=== PATIENT | female | born 1955 | race Hispanic/Latino ===

== ENCOUNTER 2018-09-16 23:35 | Inpatient (IN) | payer OTHER ==
[~2018-09-16] VITALS: Ht 170.2 cm; Wt 111.1 kg
[~2018-09-16 23:35] MED LIST: ACET-2247 PO; ALLO300T2 PO; ASPI-1012 PO; CELE200 PO; ENAL10TA PO; FERR-82 PO; GLIM4TAB PO; INSLAN SQ; LORA1TAB3 PO; METF-446 PO; OXYC5 PO; PREG25 PO; TRIA1TAB3 PO
[2018-09-17] MEDS ORDERED: LIDOCAINE 1%-EPI 1:100,000 20 ML VIAL IJ ONE (00:12)
[2018-09-17 00:17] LABS: BASOPHILS % (AUTO) 0.5 % (0.0-5.0); EOSINOPHILS % (AUTO) 0.8 % (0.0-8.0); HEMATOCRIT 34.7 % (36-48); LYMPHOCYTES % (AUTO) 12.3 % (21.0-51.0); MEAN CORPUSCULAR HEMOGLOBIN 29.9 pg (27.0-33.0); MEAN CORPUSCULAR HGB CONC 33.2 g/dL (32.0-36.0); MONOCYTES % (AUTO) 6.7 % (3.0-13.0); NEUTROPHILS % (AUTO) 79.7 % (40.0-77.0); NUCLEATED RED BLOOD CELLS 0.1 % (0.0-0.19); PLATELET COUNT (AUTO) 382 K/uL (130-400); RED BLOOD CELL COUNT(AUTO) 3.86 MIL/uL (4.00-5.50); RED CELL DISTRIBUTION WIDTH 14.6 % (11.0-15.5); WHITE BLOOD COUNT (AUTO) 17.1 K/uL (4.8-10.8)
[2018-09-17] MEDS ORDERED: CLINDAMYCIN 600 MG/D5% WATER 50 ML IV ONE (00:52)
[2018-09-17 01:06] LABS: CREATININE 1.2 mg/dL (0.5-1.5); POTASSIUM 4.4 mmol/L (3.5-5.1)
[2018-09-17] MEDS ORDERED: HYDROCODONE/ACETAMINOPHEN 5/325 MG TAB ONE (01:33)
[2018-09-17] MEDS ORDERED: VANCOMYCIN 1GM+NS 250ML 250 ML IV SCH (02:00)
[2018-09-17] MEDS ORDERED: ONDANSETRON HCL 4 MG/2 ML VIAL IV PRN (02:00)
[2018-09-17] MEDS: ACETAMINOPHEN 325 MG TAB PO SCH ×3 (02:15→16:28)
[2018-09-17] MEDS ORDERED: LORAZEPAM 1 MG TABLET PO PRN (02:15)
[2018-09-17] MEDS ORDERED: VANCOMYCIN PROTOCOL PER PHARMACY IV SCH (02:45)
[2018-09-17] MEDS ORDERED: VANCOMYCIN 1GM+NS 250ML 250 ML IV ONE (04:59)
[2018-09-17] MEDS ORDERED: SODIUM CHLORIDE 0.9% 1000ML 1,000 ML IV ONE (04:59)
[2018-09-17] MEDS ORDERED: MORPHINE SULFATE 4 MG/1ML SYG ONE (07:41)
[2018-09-17] MEDS: GLIMEPIRIDE 2 MG TABLET PO SCH ×2 (08:00→16:28)
[2018-09-17 08:20] VITALS: BP 144/60
[2018-09-17] MEDS ORDERED: DEXTROSE 50%-WATER 50 ML DISP.SYRIN IV PRN (08:45)
[2018-09-17] MEDS ORDERED: GLUCAGON 1MG KIT 1 MG ML IM PRN (08:45)
[2018-09-17] MEDS: FAMOTIDINE/PF 20 MG/2 ML VIAL IV SCH ×2 (08:54→21:24)
[2018-09-17] MEDS: ZOSYN 3.375GM+NS 50ML 50 ML IV SCH ×3 (08:55→21:24)
[2018-09-17] MEDS: ALLOPURINOL 300 MG TABLET PO SCH (08:56)
[2018-09-17] MEDS: METFORMIN HCL 500 MG TABLET PO SCH ×2 (08:56→17:21)
[2018-09-17] MEDS: ENALAPRIL MALEATE 10 MG TABLET PO SCH (08:56)
[2018-09-17] MEDS: SODIUM CHLORIDE 0.9% 1000ML 1,000 ML IV SCH ×3 (08:57→21:39)
[2018-09-17] MEDS: INSULIN GLARGINE 100 UNITS/ML 10 ML VIAL SQ SCH ×2 (09:09→21:32)
[2018-09-17] MEDS ORDERED: ASPI-1197 PO (10:12)
[2018-09-17] MEDS ORDERED: ESCI20TA36 PO (10:18)
[2018-09-17 11:05] VITALS: BP 115/51
[2018-09-17] MEDS: INSULIN HUMULIN R 100 UNIT/ML 3ML SQ SCH ×3 (12:14→21:00)
[2018-09-17] MEDS: MORPHINE SULFATE 2 MG/ML 1ML SYG IV PRN (12:16)
[2018-09-17] MEDS: VANCOMYCIN 500MG+NS 100ML 100 ML IV SCH ×2 (15:20→21:52)
[2018-09-17 15:27] VITALS: BP 107/52
[2018-09-17 16:08] LABS: HEMATOCRIT 30.6 % (36-48); MEAN CORPUSCULAR HEMOGLOBIN 29.2 pg (27.0-33.0); MEAN CORPUSCULAR HGB CONC 32.4 g/dL (32.0-36.0); MEAN CORPUSCULAR VOLUME 89.9 fL (79-99); PLATELET COUNT (AUTO) 284 K/uL (130-400); RED CELL DISTRIBUTION WIDTH 14.4 % (11.0-15.5); WHITE BLOOD COUNT (AUTO) 9.9 K/uL (4.8-10.8)
[2018-09-17] MEDS ORDERED: PREGABALIN 25 MG CAP PO SCH (17:00)
[2018-09-17 19:55] VITALS: BP 113/60
[2018-09-17] MEDS: OXYCODONE HCL 5 MG TAB PO PRN (21:39)
[2018-09-17 23:10] VITALS: BP 113/64
[2018-09-18 03:10] VITALS: BP 126/72
[2018-09-18 05:31] LABS: BASOPHILS % (AUTO) 0.6 % (0.0-5.0); EOSINOPHILS % (AUTO) 4.3 % (0.0-8.0); HEMATOCRIT 32.8 % (36-48); LYMPHOCYTES % (AUTO) 32.9 % (21.0-51.0); MEAN CORPUSCULAR HEMOGLOBIN 30.2 pg (27.0-33.0); MEAN CORPUSCULAR VOLUME 91.6 fL (79-99); MONOCYTES % (AUTO) 7.7 % (3.0-13.0); NEUTROPHILS % (AUTO) 54.5 % (40.0-77.0); PLATELET COUNT (AUTO) 384 K/uL (130-400); RED BLOOD CELL COUNT(AUTO) 3.58 MIL/uL (4.00-5.50); RED CELL DISTRIBUTION WIDTH 14.6 % (11.0-15.5); WHITE BLOOD COUNT (AUTO) 9.9 K/uL (4.8-10.8)
[2018-09-18] MEDS: ZOSYN 3.375GM+NS 50ML 50 ML IV SCH (05:50)
[2018-09-18] MEDS: INSULIN HUMULIN R 100 UNIT/ML 3ML SQ SCH ×4 (05:51→21:00)
[2018-09-18] MEDS: VANCOMYCIN 500MG+NS 100ML 100 ML IV SCH (05:51)
[2018-09-18 05:55] LABS: CREATININE 1.2 mg/dL (0.5-1.5)
[2018-09-18 07:30] VITALS: BP 126/59
[2018-09-18] MEDS: INSULIN GLARGINE 100 UNITS/ML 10 ML VIAL SQ SCH ×2 (08:02→21:50)
[2018-09-18] MEDS: METFORMIN HCL 500 MG TABLET PO SCH ×2 (08:07→17:24)
[2018-09-18] MEDS: ENALAPRIL MALEATE 10 MG TABLET PO SCH (08:07)
[2018-09-18] MEDS: ALLOPURINOL 300 MG TABLET PO SCH (08:07)
[2018-09-18] MEDS: FAMOTIDINE/PF 20 MG/2 ML VIAL IV SCH ×2 (08:07→20:15)
[2018-09-18] MEDS: ACETAMINOPHEN 325 MG TAB PO PRN (08:16)
[2018-09-18] MEDS: MORPHINE SULFATE 2 MG/ML 1ML SYG IV PRN (08:17)
[2018-09-18 11:00] VITALS: BP 118/54
[2018-09-18] MEDS: CLINDAMYCIN HCL 150 MG CAP PO SCH ×2 (12:43→17:24)
[2018-09-18 16:00] VITALS: BP 126/88
[2018-09-18] MEDS: OXYCODONE HCL 5 MG TAB PO PRN (20:15)
[2018-09-18 20:24] VITALS: BP 144/73
[2018-09-18 23:34] VITALS: BP 122/59
[2018-09-19] MEDS: CLINDAMYCIN HCL 150 MG CAP PO SCH ×3 (03:27→17:28)
[2018-09-19] MEDS: ACETAMINOPHEN 325 MG TAB PO PRN ×2 (03:34→15:55)
[2018-09-19 03:42] VITALS: BP 141/71
[2018-09-19 04:45] LABS: BASOPHILS % (AUTO) 0.6 % (0.0-5.0); EOSINOPHILS % (AUTO) 5.1 % (0.0-8.0); HEMATOCRIT 31.9 % (36-48); LYMPHOCYTES % (AUTO) 28.9 % (21.0-51.0); MEAN CORPUSCULAR HEMOGLOBIN 29.3 pg (27.0-33.0); MEAN CORPUSCULAR HGB CONC 32.5 g/dL (32.0-36.0); MEAN CORPUSCULAR VOLUME 90.4 fL (79-99); MONOCYTES % (AUTO) 8.3 % (3.0-13.0); NEUTROPHILS % (AUTO) 57.1 % (40.0-77.0); NUCLEATED RED BLOOD CELLS 0.1 % (0.0-0.19); PLATELET COUNT (AUTO) 346 K/uL (130-400); RED BLOOD CELL COUNT(AUTO) 3.53 MIL/uL (4.00-5.50); RED CELL DISTRIBUTION WIDTH 14.3 % (11.0-15.5); WHITE BLOOD COUNT (AUTO) 7.8 K/uL (4.8-10.8)
[2018-09-19 04:59] LABS: POTASSIUM 4.1 mmol/L (3.5-5.1)
[2018-09-19] MEDS: INSULIN HUMULIN R 100 UNIT/ML 3ML SQ SCH ×4 (06:36→20:30)
[2018-09-19 08:00] VITALS: BP 145/72
[2018-09-19] MEDS: ENALAPRIL MALEATE 10 MG TABLET PO SCH (08:20)
[2018-09-19] MEDS: FAMOTIDINE/PF 20 MG/2 ML VIAL IV SCH (08:21)
[2018-09-19] MEDS: METFORMIN HCL 500 MG TABLET PO SCH ×2 (08:21→17:28)
[2018-09-19] MEDS: ALLOPURINOL 300 MG TABLET PO SCH (08:21)
[2018-09-19] MEDS: INSULIN GLARGINE 100 UNITS/ML 10 ML VIAL SQ SCH ×2 (08:26→21:00)
[2018-09-19] MEDS: OXYCODONE HCL 5 MG TAB PO PRN ×2 (09:03→17:33)
[2018-09-19 11:50] VITALS: BP 130/67
[2018-09-19 16:00] VITALS: BP 138/72
[2018-09-19] MEDS ORDERED: METRONIDAZOLE 500 MG TABLET PO STA (18:02)
[2018-09-19] MEDS ORDERED: LEVOFLOXACIN 500 MG TABLET PO STA (18:02)
[2018-09-19 20:03] VITALS: BP 159/71
[2018-09-19] MEDS: FAMOTIDINE 20MG TAB 20 MG TAB PO SCH (20:36)
[2018-09-19] MEDS: METRONIDAZOLE 500 MG TABLET PO SCH (20:37)
[2018-09-19 23:07] VITALS: BP 133/53
[2018-09-20] MEDS: OXYCODONE HCL 5 MG TAB PO PRN ×2 (00:17→12:15)
[2018-09-20] MEDS: CLINDAMYCIN HCL 150 MG CAP PO SCH ×3 (01:54→09:59)
[2018-09-20 03:16] VITALS: BP 135/65
[2018-09-20 04:53] LABS: HEMATOCRIT 30.1 % (36-48); MEAN CORPUSCULAR HEMOGLOBIN 30.4 pg (27.0-33.0); MEAN CORPUSCULAR HGB CONC 33.8 g/dL (32.0-36.0); MEAN CORPUSCULAR VOLUME 90.1 fL (79-99); NUCLEATED RED BLOOD CELLS 0.1 % (0.0-0.19); PLATELET COUNT (AUTO) 353 K/uL (130-400); RED BLOOD CELL COUNT(AUTO) 3.34 MIL/uL (4.00-5.50); RED CELL DISTRIBUTION WIDTH 14.2 % (11.0-15.5); WHITE BLOOD COUNT (AUTO) 7.1 K/uL (4.8-10.8)
[2018-09-20 05:03] LABS: POTASSIUM 3.9 mmol/L (3.5-5.1)
[2018-09-20] MEDS: METRONIDAZOLE 500 MG TABLET PO SCH ×2 (05:21→14:23)
[2018-09-20] MEDS: INSULIN HUMULIN R 100 UNIT/ML 3ML SQ SCH ×2 (05:55→11:30)
[2018-09-20] MEDS ORDERED: LEVO500T2 PO (07:32)
[2018-09-20] MEDS ORDERED: FAMO20TA8 PO (07:32)
[2018-09-20] MEDS ORDERED: METR500T PO (07:32)
[2018-09-20 08:00] VITALS: BP 131/56
[2018-09-20] MEDS ORDERED: LEVOFLOXACIN 500 MG TABLET PO SCH (09:00)
[2018-09-20] MEDS: ENALAPRIL MALEATE 10 MG TABLET PO SCH (09:58)
[2018-09-20] MEDS: FAMOTIDINE 20MG TAB 20 MG TAB PO SCH (09:59)
[2018-09-20] MEDS: ALLOPURINOL 300 MG TABLET PO SCH (09:59)
[2018-09-20] MEDS: METFORMIN HCL 500 MG TABLET PO SCH (09:59)
[2018-09-20] MEDS: INSULIN GLARGINE 100 UNITS/ML 10 ML VIAL SQ SCH (10:05)
[2018-09-20 11:00] VITALS: BP 140/63
== END 2018-09-20 15:14 | disposition home or self-care (01) | DRG 746 ==
LOC: EDH 23:35 → EDHIP 09-17 01:30 → UNDOADMOB 09-17 01:30 → EDHIP 09-17 01:31 → OBSVTOIN 09-17 01:31 → 4BH 09-17 08:16
PROVIDERS: ADMIT Hospitalist; ATTEND Hospitalist
PROC: 0U9MXZX Drainage of Vulva, External Approach, Diagnostic (ICD-10-PCS; principal; 2018-09-17)
DX: N76.4 Abscess of vulva (principal); L02.214 Cutaneous abscess of groin; E11.65 Type 2 diabetes mellitus with hyperglycemia; I10 Essential (primary) hypertension; D72.829 Elevated white blood cell count, unspecified; E66.9 Obesity, unspecified; F32.9 Major depressive disorder, single episode, unspecified; F41.9 Anxiety disorder, unspecified; E78.5 Hyperlipidemia, unspecified; Z96.641 Presence of right artificial hip joint; Z79.4 Long term (current) use of insulin; Z83.3 Family history of diabetes mellitus; Z82.49 Family history of ischemic heart disease and other diseases of the circulatory system; Z68.38 Body mass index [BMI] 38.0-38.9, adult
CPT/HCPCS: 36415; 80048; 80202; 82948; 83605; 85025; 85027; 87040; 87070; 87076; J1815; J2270; J2405; J2543; J3370; J3490; J7030; Q2035

== ENCOUNTER 2019-01-10 06:33 | Inpatient (IN) | payer OTHER | END 2019-01-12 19:39 | disposition home or self-care (01) | LOC: DAHIP 06:33 → 4AH 12:59 | PROC: 0SRB01Z Replacement of Left Hip Joint with Metal Synthetic Substitute, Open Approach (ICD-10-PCS; principal; 2019-01-10 08:35) | DX: M16.0 Bilateral primary osteoarthritis of hip (principal) ==

== ENCOUNTER 2020-03-19 16:36 | Emergency (ER) | payer MEDICARE, OTHER ==
[~2020-03-19 16:36] MED LIST changes: -ACET-2247 PO; +ALLI PO; -CELE200 PO; -ENAL10TA PO; +ENAL10TA18 PO; -FERR-82 PO; -GLIM4TAB PO; +HYDR-4457 PO; +LORA0.5T83 PO; -LORA1TAB3 PO; -OXYC5 PO; -PREG25 PO; +TEMA15CA5 PO; -TRIA1TAB3 PO; +VITA400C73 PO
[2020-03-19] MEDS ORDERED: ACETAMINOPHEN EXTRA STRENGTH 500 MG TABLET ONE (17:12)
== END 2020-03-19 18:23 | disposition home or self-care (01) ==
LOC: EDH 16:36
DX: S31.41XA Laceration without foreign body of vagina and vulva, initial encounter (principal); S80.212A Abrasion, left knee, initial encounter; S80.211A Abrasion, right knee, initial encounter; E11.9 Type 2 diabetes mellitus without complications; I10 Essential (primary) hypertension; M10.9 Gout, unspecified; Z88.1 Allergy status to other antibiotic agents; W18.39XA Other fall on same level, initial encounter; Y93.01 Activity, walking, marching and hiking; Y92.89 Other specified places as the place of occurrence of the external cause; Y99.8 Other external cause status
CPT/HCPCS: 70450; 72125; 73562

== ENCOUNTER 2020-05-20 19:56 | Inpatient (IN) | payer MEDICARE ==
[~2020-05-20] VITALS: Ht 165.1 cm; Wt 102.5 kg
[~2020-05-20 19:56] MED LIST changes: +ENAL10TA PO; -ENAL10TA18 PO
[2020-05-20 21:23] LABS: BASOPHILS % (AUTO) 0.2 % (0.0-5.0); EOSINOPHILS % (AUTO) 0.2 % (0.0-8.0); HEMATOCRIT 36.1 % (36-48); LYMPHOCYTES % (AUTO) 23.8 % (21.0-51.0); MEAN CORPUSCULAR HGB CONC 32.1 g/dL (32.0-36.0); MEAN CORPUSCULAR VOLUME 87.2 fL (79-99); MONOCYTES % (AUTO) 8.4 % (3.0-13.0); NEUTROPHILS % (AUTO) 67.1 % (40.0-77.0); PLATELET COUNT (AUTO) 271 K/uL (130-400); RED BLOOD CELL COUNT(AUTO) 4.14 MIL/uL (4.00-5.50); RED CELL DISTRIBUTION WIDTH 14.5 % (11.0-15.5); WHITE BLOOD COUNT (AUTO) 6.5 K/uL (4.8-10.8)
[2020-05-20 21:42] LABS: INR 0.88 (0.85-1.15); PARTIAL THROMBOPLASTIN TIME 28.7 SEC (26.3-35.5); PROTHROMBIN TIME 9.6 SEC (9.6-11.6)
[2020-05-20 21:47] LABS: B-TYPE NATRIURETIC PEPTIDE 9 pg/mL (0-100)
[2020-05-20 21:54] LABS: ALANINE AMINOTRANSFERASE 30 U/L (12-78); ALBUMIN 3.2 g/dL (3.5-5.0); ASPARTATE AMINOTRANSFERASE 43 U/L (10-37); BILIRUBIN,TOTAL 0.2 mg/dL (0.2-1.0); CARBON DIOXIDE 24 mmol/L (21-32); CHLORIDE 94 mmol/L (101-111); CREATINE KINASE, TOTAL 118 U/L (21-232); GLOMERULAR FILTR. RATE CALC 27 mL/min (>60); MYOGLOBIN 152 ng/mL (10-92); SODIUM SERUM 128 mmol/L (136-145); TOTAL PROTEIN, SERUM 7.2 g/dL (6.0-8.3); TROPONIN I < 0.04 ng/mL (0.00-0.06); UREA NITROGEN, BLOOD 35 mg/dL (7-18)
[2020-05-20 22:00] LABS: GLUCOSE,RANDOM 463 mg/dL (70-105)
[2020-05-20 22:13] LABS: ABG BASE EXCESS -2.4 mmol/L (-2.0-3.0); ABG HCO3 22.5 mmol/L (21.0-28.0); ABG OXYGEN SATURATION 92.1 % (95.0-99.0); ABG PCO2 40 mmHg (32-45)
[2020-05-20] MEDS ORDERED: AZITHROMYCIN 500MG+NS 250ML 250 ML IV ONE (23:56)
[2020-05-20] MEDS ORDERED: CEFTRIAXONE SODIUM 1 GM ONE (23:56)
[2020-05-20] MEDS ORDERED: DEXAMETHASONE SOD PHOSPHATE 4 MG/ML 1ML VIAL ONE (23:56)
[2020-05-20] MEDS ORDERED: INSULIN HUMULIN R 100 UNIT/ML 3ML ONE (23:57)
[2020-05-21 00:30] LABS: APPEARANCE,URINE Clear (CLEAR); BILIRUBIN,URINE Negative (NEGATIVE); COLOR,URINE Yellow (YELLOW); GLUCOSE, URINE (UA) >=1000 mg/dL (NEGATIVE); KETONES,URINE Negative (NEGATIVE); LEUKOCYTE ESTERASE ,URINE Negative (NEGATIVE); NITRATE,URINE Negative (NEGATIVE); OCCULT BLOOD,URINE Small (NEGATIVE); PROTEIN,URINE POS 2+ mg/dL (NEGATIVE); UROBILINOGEN,URINE 0.2 mg/dL (0.2-1.0)
[2020-05-21 00:41] LABS: BACTERIA,URINE None Seen /HPF (None Seen); RBC,URINE 0-1 /HPF (0-1); SQUAMOUS EPITHELIAL CELL,UR Rare /HPF (0-2); WBC,URINE None Seen /HPF (0-1); YEAST,URINE BUDDING None Seen /HPF (None Seen)
[2020-05-21] MEDS: CALCIUM GLUCONATE 1 GM/10 ML VIAL IV SCH (01:15)
[2020-05-21] MEDS ORDERED: GLUCAGON 1MG KIT 1 MG ML IM PRN (01:15)
[2020-05-21] MEDS: ALBUTEROL INHALER 90MCG/INH IH SCH ×7 (01:15→22:00)
[2020-05-21] MEDS ORDERED: DEXTROSE 50%-WATER 50 ML DISP.SYRIN IV PRN (01:15)
[2020-05-21] MEDS: LEVOFLOXACIN 500 MG/D5W 100 ML 100 ML IV SCH (01:30)
[2020-05-21] MEDS: SODIUM CHLORIDE 0.9% 1000ML 1,000 ML IV SCH ×3 (01:32→21:32)
[2020-05-21] MEDS ORDERED: LEVOFLOXACIN 500 MG/D5W 100 ML 100 ML ONE (01:38)
[2020-05-21] MEDS ORDERED: ALBUTEROL INHALER 90MCG/INH IH ONE (01:38)
[2020-05-21] MEDS: METHYLPREDNISOLONE SOD SUCC 125MG/2ML VIAL IVP SCH (01:45)
[2020-05-21] MEDS ORDERED: ONDANSETRON HCL 4 MG/2 ML VIAL IV PRN (01:45)
[2020-05-21] MEDS ORDERED: NITROGLYCERIN 0.4 MG SL TAB SL PRN (01:45)
[2020-05-21] MEDS ORDERED: SODIUM CHLORIDE 0.9% 1000ML 1,000 ML IV PRN (01:45)
[2020-05-21] MEDS ORDERED: CALCIUM GLUCONATE 1 GM/10 ML VIAL IV ONE (01:47)
[2020-05-21 02:16] LABS: CREATINE KINASE, TOTAL 114 U/L (21-232); LACTATE DEHYDROGENASE 216 U/L (81-234); MYOGLOBIN 138 ng/mL (10-92); TRIGLYCERIDES 175 mg/dL (30-200); TROPONIN I < 0.04 ng/mL (0.00-0.06)
[2020-05-21] MEDS ORDERED: METHYLPREDNISOLONE SOD SUCC 40MG/ML 1ML ONE ×3 (02:41→14:49)
[2020-05-21 07:05] LABS: HEMATOCRIT 38.1 % (36-48); MEAN CORPUSCULAR HEMOGLOBIN 27.7 pg (27.0-33.0); MEAN CORPUSCULAR HGB CONC 31.8 g/dL (32.0-36.0); MEAN CORPUSCULAR VOLUME 87.2 fL (79-99); PLATELET COUNT (AUTO) 305 K/uL (130-400); RED BLOOD CELL COUNT(AUTO) 4.37 MIL/uL (4.00-5.50); RED CELL DISTRIBUTION WIDTH 14.2 % (11.0-15.5); WHITE BLOOD COUNT (AUTO) 10.3 K/uL (4.8-10.8)
[2020-05-21 08:36] LABS: ALBUMIN 3.1 g/dL (3.5-5.0); BILIRUBIN,TOTAL 0.2 mg/dL (0.2-1.0); CREATININE 1.6 mg/dL (0.5-1.5); MAGNESIUM 1.6 mg/dL (1.80-2.40); POTASSIUM 4.9 mmol/L (3.5-5.1); TOTAL PROTEIN, SERUM 7.5 g/dL (6.0-8.3)
[2020-05-21] MEDS ORDERED: PANTOPRAZOLE SODIUM 40 MG TABLET.DR ONE (08:40)
[2020-05-21] MEDS ORDERED: HEPARIN SODIUM 5000UNIT/ML 1ML VIAL ONE ×2 (08:40→14:50)
[2020-05-21] MEDS ORDERED: INSULIN HUMULIN R 100 UNIT/ML 3ML ONE ×2 (08:44→14:50)
[2020-05-21] MEDS ORDERED: TETRACAINE HCL 0.5% 4 ML OPHTH SOLN ONE (08:44)
[2020-05-21 08:47] VITALS: BP 151/70
[2020-05-21] MEDS: PANTOPRAZOLE SODIUM 40 MG TABLET.DR PO SCH (08:51)
[2020-05-21] MEDS: METHYLPREDNISOLONE SOD SUCC 40MG/ML 1ML IVP SCH ×2 (08:51→18:00)
[2020-05-21] MEDS: INSULIN HUMULIN R 100 UNIT/ML 3ML SQ SCH ×4 (08:58→21:00)
[2020-05-21] MEDS: HEPARIN SODIUM 5000UNIT/ML 1ML VIAL SQ SCH ×3 (08:59→21:00)
[2020-05-21 09:01] LABS: LYMPHOCYTES % (MANUAL) 2 % (22-44); MONOCYTES % (MANUAL) 5 % (2-9); PLATELET MORPHOLOGY COMMENT ADEQUATE; SEGMENTED NEUTROPHILS % 93 % (40-70)
--- NOTE | 2020-05-21 17:23 | NUR ---
SPOKE TO SON ON PHONE FOR IA. PATIENT MAURISIO WITH SON ANN, IS INDEPENDENT AND ACTIVE, DRIVES, HAD WKR AND SHOWER CHAIR AT HOME FROM PAST [facility] OCCASIONALLY USES A CANE- SON STATES HAS NOT YET BEEN TESTED, IS HAVING A LAB COME TO HIS HOUSE ON TUESDAY FOR TESTING. SON STATES PT TOLD HIM SHE WAS POSITIVE, ADVISED HIM NO RESULT BACK YET. DC PLAN IS HOME , CM TO FOLLOW
[2020-05-21] MEDS ORDERED: DIPHENHYDRAMINE HCL 25 MG CAPSULE ONE (21:54)
[2020-05-22] VITALS (7 sets, daily range): BP systolic 110–185; BP diastolic 64–87
[2020-05-22] MEDS ORDERED: METHYLPREDNISOLONE SOD SUCC 40MG/ML 1ML ONE (00:36)
[2020-05-22] MEDS ORDERED: HEPARIN SODIUM 5000UNIT/ML 1ML VIAL ONE (00:36)
[2020-05-22] MEDS: CALCIUM GLUCONATE 1 GM/10 ML VIAL IV SCH (01:15)
[2020-05-22] MEDS ORDERED: LEVOFLOXACIN 500 MG/D5W 100 ML 100 ML ONE (01:28)
[2020-05-22] MEDS: LEVOFLOXACIN 500 MG/D5W 100 ML 100 ML IV SCH (01:30)
[2020-05-22] MEDS: METHYLPREDNISOLONE SOD SUCC 125MG/2ML VIAL IVP SCH (01:45)
[2020-05-22] MEDS: ALBUTEROL INHALER 90MCG/INH IH SCH ×6 (02:00→21:56)
[2020-05-22] MEDS: METHYLPREDNISOLONE SOD SUCC 40MG/ML 1ML IVP SCH ×3 (02:00→17:47)
--- NOTE | 2020-05-22 02:35 | NUR ---
ADMISSION 0203 RECEIVED ER REPORT FROM ANDREEA PALMER RN 0235 PT ADMIT RM 411 ARRIVED ON O2 AT 3LPM PT REMOVED O2 OOB TO TOILET SPO2 87% SOB WITH EXERTION PT STATES ITS HER ASTHMA AND WHEEZES LUNG SOUNDS CLEAR BILAT CONT O2 SPO2 3LPM AT 96% INFORMED HER TO KEEP O2NC ON, AT REST PT CALM NO RESPIRATORY DISTRESS NO VALUABLE/ HOME MEDICATION AT BEDSIDE, ADMISSION DATABASE COMPLETE. WILL CONTINUE TO MONITOR PT
[2020-05-22 06:02] LABS: HEMATOCRIT 34.9 % (36-48); MEAN CORPUSCULAR HEMOGLOBIN 28.3 pg (27.0-33.0); MEAN CORPUSCULAR HGB CONC 32.7 g/dL (32.0-36.0); MEAN CORPUSCULAR VOLUME 86.6 fL (79-99); PLATELET COUNT (AUTO) 312 K/uL (130-400); RED BLOOD CELL COUNT(AUTO) 4.03 MIL/uL (4.00-5.50); RED CELL DISTRIBUTION WIDTH 14.2 % (11.0-15.5); WHITE BLOOD COUNT (AUTO) 9.3 K/uL (4.8-10.8)
[2020-05-22 06:33] LABS: CREATININE 1.9 mg/dL (0.5-1.5); POTASSIUM 4.7 mmol/L (3.5-5.1)
[2020-05-22] MEDS: INSULIN HUMULIN R 100 UNIT/ML 3ML SQ SCH ×6 (06:34→21:13)
[2020-05-22 08:53] LABS: BAND NEUTROPHILS % (MANUAL) 5 % (0-2); LYMPHOCYTES % (MANUAL) 10 % (22-44); MAN.DIFF COMMENT-IMPRESSION MANUAL DIFFERENTIAL; MONOCYTES % (MANUAL) 2 % (2-9); PLATELET MORPHOLOGY COMMENT ADEQUATE; SEGMENTED NEUTROPHILS % 83 % (40-70)
[2020-05-22] MEDS: PANTOPRAZOLE SODIUM 40 MG TABLET.DR PO SCH (09:28)
[2020-05-22] MEDS: HEPARIN SODIUM 5000UNIT/ML 1ML VIAL SQ SCH ×3 (09:38→21:10)
[2020-05-22] MEDS: SODIUM CHLORIDE 0.9% 1000ML 1,000 ML IV SCH ×3 (09:55→21:08)
[2020-05-22] MEDS ORDERED: INSULIN GLARGINE 100 UNITS/ML 10 ML VIAL SQ SCH ×2 (12:00→21:00)
[2020-05-22] MEDS ORDERED: INSULIN GLARGINE 100 UNITS/ML 10 ML VIAL SQ ONE (14:00)
[2020-05-22] MEDS ORDERED: INSULIN HUMULIN R 100 UNIT/ML 3ML SQ SCH (17:00)
[2020-05-22] MEDS ORDERED: ENALAPRIL MALEATE 10 MG TABLET PO SCH (22:30)
--- NOTE | 2020-05-22 23:56 | NUR ---
Assessment Pt is in the bed sleeping. Vitals are stable now. BP is trending down. Pt is being closely monitored. BS is being monitored as well.
[2020-05-23] VITALS (9 sets, daily range): BP systolic 101–185; BP diastolic 53–83
[2020-05-23] MEDS: LEVOFLOXACIN 500 MG/D5W 100 ML 100 ML IV SCH (01:35)
[2020-05-23] MEDS: METHYLPREDNISOLONE SOD SUCC 40MG/ML 1ML IVP SCH ×3 (01:36→17:56)
[2020-05-23] MEDS: ALBUTEROL INHALER 90MCG/INH IH SCH ×3 (01:37→20:36)
[2020-05-23] MEDS: METHYLPREDNISOLONE SOD SUCC 125MG/2ML VIAL IVP SCH (01:38)
[2020-05-23] MEDS: INSULIN HUMULIN R 100 UNIT/ML 3ML SQ SCH ×7 (05:53→20:33)
[2020-05-23 06:09] LABS: HEMATOCRIT 36.4 % (36-48); LYMPHOCYTES % (AUTO) 6.1 % (21.0-51.0); MEAN CORPUSCULAR VOLUME 84.8 fL (79-99); NEUTROPHILS % (AUTO) 89.4 % (40.0-77.0); PLATELET COUNT (AUTO) 340 K/uL (130-400); RED BLOOD CELL COUNT(AUTO) 4.29 MIL/uL (4.00-5.50); RED CELL DISTRIBUTION WIDTH 14.2 % (11.0-15.5); WHITE BLOOD COUNT (AUTO) 11.8 K/uL (4.8-10.8)
[2020-05-23 06:28] LABS: ALBUMIN 3.1 g/dL (3.5-5.0); BILIRUBIN,TOTAL 0.4 mg/dL (0.2-1.0); CREATININE 1.3 mg/dL (0.5-1.5); CRP QUANTITATIVE 61.1 mg/L (0.00-9.0); POTASSIUM 4.1 mmol/L (3.5-5.1); TOTAL PROTEIN, SERUM 7.4 g/dL (6.0-8.3)
[2020-05-23] MEDS: PANTOPRAZOLE SODIUM 40 MG TABLET.DR PO SCH (08:43)
[2020-05-23] MEDS: ENALAPRIL MALEATE 10 MG TABLET PO SCH (08:45)
[2020-05-23] MEDS: HEPARIN SODIUM 5000UNIT/ML 1ML VIAL SQ SCH ×3 (08:47→20:35)
[2020-05-23] MEDS ORDERED: INSULIN GLARGINE 100 UNITS/ML 10 ML VIAL SQ SCH (09:00)
--- NOTE | 2020-05-23 18:30 | NUR ---
Pt is in chair on side of bed sitting up watching tv, pt showed no signs and symptoms of distress, pt stated no pain, 3L NC
[2020-05-23] MEDS: INSULIN GLARGINE 100 UNITS/ML 10 ML VIAL SQ SCH (20:34)
[2020-05-23] MEDS: DIPHENHYDRAMINE HCL 25 MG CAPSULE PO PRN (20:35)
[2020-05-24] VITALS (8 sets, daily range): BP systolic 136–159; BP diastolic 62–80
[2020-05-24] MEDS: METHYLPREDNISOLONE SOD SUCC 125MG/2ML VIAL IVP SCH (01:32)
[2020-05-24] MEDS: METHYLPREDNISOLONE SOD SUCC 40MG/ML 1ML IVP SCH ×3 (01:32→16:42)
[2020-05-24] MEDS: ALBUTEROL INHALER 90MCG/INH IH SCH ×6 (01:32→20:52)
[2020-05-24] MEDS: LEVOFLOXACIN 500 MG/D5W 100 ML 100 ML IV SCH (01:32)
--- NOTE | 2020-05-24 02:00 | NUR ---
Assessment Pt is sitting on the side of the bed watching tv. She stated that she feels fine & does not have any concerns at the moment. Vitals are stable & no S/S of distress noted. Pt is being closely monitored.
[2020-05-24] MEDS: INSULIN HUMULIN R 100 UNIT/ML 3ML SQ SCH ×7 (06:21→20:52)
[2020-05-24 07:33] LABS: BASOPHILS % (AUTO) 0.1 % (0.0-5.0); HEMATOCRIT 36.4 % (36-48); LYMPHOCYTES % (AUTO) 3.8 % (21.0-51.0); MEAN CORPUSCULAR HEMOGLOBIN 27.5 pg (27.0-33.0); MEAN CORPUSCULAR HGB CONC 32.1 g/dL (32.0-36.0); MEAN CORPUSCULAR VOLUME 85.4 fL (79-99); MONOCYTES % (AUTO) 4.5 % (3.0-13.0); NEUTROPHILS % (AUTO) 91.2 % (40.0-77.0); PLATELET COUNT (AUTO) 322 K/uL (130-400); RED BLOOD CELL COUNT(AUTO) 4.26 MIL/uL (4.00-5.50); RED CELL DISTRIBUTION WIDTH 14.3 % (11.0-15.5); WHITE BLOOD COUNT (AUTO) 13.1 K/uL (4.8-10.8)
[2020-05-24 08:06] LABS: ALBUMIN 2.9 g/dL (3.5-5.0); BILIRUBIN,TOTAL 0.3 mg/dL (0.2-1.0); CREATININE 1.2 mg/dL (0.5-1.5); CRP QUANTITATIVE 39.2 mg/L (0.00-9.0)
[2020-05-24] MEDS: PANTOPRAZOLE SODIUM 40 MG TABLET.DR PO SCH (08:30)
[2020-05-24] MEDS: ENALAPRIL MALEATE 10 MG TABLET PO SCH (08:31)
[2020-05-24] MEDS: HEPARIN SODIUM 5000UNIT/ML 1ML VIAL SQ SCH ×3 (08:34→20:47)
[2020-05-24] MEDS: INSULIN GLARGINE 100 UNITS/ML 10 ML VIAL SQ SCH ×2 (08:35→20:48)
--- NOTE | 2020-05-24 18:26 | NUR ---
Pt oxygen dropped on 4L NC from 90% to 69-70%, was not symptomatic, respiratory placed Nonrebreather mask on pt 15L, pt saturation is now 92-94, pt was placed in a prone position, pt is maintaining 90-94% with the non-rebreather on, will continue to monitor,
[2020-05-24] MEDS: DIPHENHYDRAMINE HCL 25 MG CAPSULE PO PRN (20:46)
[2020-05-24] MEDS: ACETYLCYSTEINE 600 MG CAPSULE PO SCH (20:46)
[2020-05-25] VITALS (11 sets, daily range): BP systolic 143–180; BP diastolic 69–86
--- NOTE | 2020-05-25 01:15 | NUR ---
RAPID RESPONSE On 05-25-2020 at approximately 0020 I heard a patient yelling for help. When I went into room 411 I observed the patient lying on the floor. she had the dinamap lying on top of her. I removed the dinamap and the patient sat up. She had a red raised area to her left forehead. The patient stated that she took off her nonrebreather and went to the bathroom. She said that she had been going to the bathroom by herself. She said that she got dizzy on the way back to the bathroom and fell down on her left side. i conducted a head to toe assessment and did not notice any redness or lacerations anywhere other than her forehead. I assisted the patient back into bed and got vital signs. The oxygen level stayed around 80% so i initiated a rapid response. The rapid response team arrived and worked with the patient until the oxygen saturation was at 93%. The Nurse Practitioner arrived and assessed the patient and ordered a ct of the head. The patient still states that she is dizzy.
--- NOTE | 2020-05-25 01:16 | NUR ---
Fall Assessment\ I was in the break room on lunch when the charge nurse (Teodoro) entered and informed me that fell coming out the restroom @0022. I was told that she was walking from the restroom & became dizzy/lightheaded and lost her balance. Pt fell per report I was given and the dinamap fell on top of her and hit her head which resulted into a hematoma. A rapid response was called due to the fact that her O2 sats were maintaining in the 70s. The REWARDS CONSULTANT & Structures Technician is aware of the situation. A CT of the head was ordered. The patient O2 sat. is now 93% on a nonrebreather @15 lpm & other vitals are stable as well BP 143/72 HR 91. She is being closely monitored.
[2020-05-25] MEDS: METHYLPREDNISOLONE SOD SUCC 125MG/2ML VIAL IVP SCH (02:19)
[2020-05-25] MEDS: METHYLPREDNISOLONE SOD SUCC 40MG/ML 1ML IVP SCH ×3 (02:19→16:50)
[2020-05-25] MEDS: ALBUTEROL INHALER 90MCG/INH IH SCH ×6 (02:19→20:47)
[2020-05-25] MEDS: LEVOFLOXACIN 500 MG/D5W 100 ML 100 ML IV SCH (02:19)
--- NOTE | 2020-05-25 02:54 | NUR ---
Follow-Up Assessment Pt states that she feels fine. Her oxygen sat. is sustaining @96% on a nonrebreather. The CT of the head was negative. The patient is not showing any S/S of distress. She is being closely monitored. Vitals are stable.
[2020-05-25] MEDS: ACETAMINOPHEN 325 MG TAB PO PRN (04:56)
[2020-05-25] MEDS: INSULIN HUMULIN R 100 UNIT/ML 3ML SQ SCH ×7 (05:55→20:42)
[2020-05-25 06:56] LABS: BASOPHILS % (AUTO) 0.1 % (0.0-5.0); HEMATOCRIT 36.8 % (36-48); LYMPHOCYTES % (AUTO) 3.1 % (21.0-51.0); MEAN CORPUSCULAR HEMOGLOBIN 28.1 pg (27.0-33.0); MEAN CORPUSCULAR HGB CONC 32.6 g/dL (32.0-36.0); MEAN CORPUSCULAR VOLUME 86.2 fL (79-99); MONOCYTES % (AUTO) 5.1 % (3.0-13.0); NEUTROPHILS % (AUTO) 90.6 % (40.0-77.0); PLATELET COUNT (AUTO) 356 K/uL (130-400); RED BLOOD CELL COUNT(AUTO) 4.27 MIL/uL (4.00-5.50); RED CELL DISTRIBUTION WIDTH 14.2 % (11.0-15.5); WHITE BLOOD COUNT (AUTO) 15.7 K/uL (4.8-10.8)
[2020-05-25 07:52] LABS: ALBUMIN 2.6 g/dL (3.5-5.0); BILIRUBIN,TOTAL 0.4 mg/dL (0.2-1.0); CREATININE 1.1 mg/dL (0.5-1.5); CRP QUANTITATIVE 36.7 mg/L (0.00-9.0); POTASSIUM 3.8 mmol/L (3.5-5.1); TOTAL PROTEIN, SERUM 6.6 g/dL (6.0-8.3)
[2020-05-25] MEDS: ACETYLCYSTEINE 600 MG CAPSULE PO SCH ×2 (08:12→20:44)
[2020-05-25] MEDS: PANTOPRAZOLE SODIUM 40 MG TABLET.DR PO SCH (08:12)
[2020-05-25] MEDS: ENALAPRIL MALEATE 10 MG TABLET PO SCH (08:13)
[2020-05-25] MEDS: HEPARIN SODIUM 5000UNIT/ML 1ML VIAL SQ SCH ×3 (08:16→20:46)
[2020-05-25] MEDS: INSULIN GLARGINE 100 UNITS/ML 10 ML VIAL SQ SCH ×2 (08:19→20:47)
[2020-05-25] MEDS ORDERED: PHARMACY COMMUNICATION MISC SCH (14:15)
[2020-05-25] MEDS ORDERED: METHYLPREDNISOLONE SOD SUCC 125MG/2ML VIAL IVP ONE (17:30)
--- NOTE | 2020-05-25 18:50 | NUR ---
Pt is on a non-rebreather mask sat at 95k%, pt is to receive 2 units of plasma, consent signed, pt vitals was stable, showed no signs and symptoms of distress
[2020-05-25] MEDS: DEXAMETHASONE 4 MG TAB PO SCH (20:44)
[2020-05-25] MEDS: DIPHENHYDRAMINE HCL 25 MG CAPSULE PO PRN (20:44)
[2020-05-26] VITALS (8 sets, daily range): BP systolic 109–180; BP diastolic 60–80
[2020-05-26] MEDS: LEVOFLOXACIN 500 MG/D5W 100 ML 100 ML IV SCH (01:13)
[2020-05-26] MEDS: ALBUTEROL INHALER 90MCG/INH IH SCH ×6 (01:14→22:00)
--- NOTE | 2020-05-26 04:01 | NUR ---
Assessment Patient is sitting on the side of the bed showing no S/S of distress. O2 sat. 95% on a non-rebreather. She is being closely monitored.
[2020-05-26 04:40] LABS: ABG BASE EXCESS 5.6 mmol/L (-2.0-3.0); ABG HCO3 28.4 mmol/L (21.0-28.0); ABG OXYGEN SATURATION 95.2 % (95.0-99.0); ABG PCO2 36 mmHg (32-45)
[2020-05-26] MEDS: ACETAMINOPHEN 325 MG TAB PO PRN (04:48)
[2020-05-26] MEDS: INSULIN HUMULIN R 100 UNIT/ML 3ML SQ SCH ×7 (05:47→20:52)
[2020-05-26] MEDS: DEXAMETHASONE 4 MG TAB PO SCH ×2 (08:26→20:40)
[2020-05-26] MEDS: ENALAPRIL MALEATE 10 MG TABLET PO SCH (08:27)
[2020-05-26] MEDS: PANTOPRAZOLE SODIUM 40 MG TABLET.DR PO SCH (08:27)
[2020-05-26] MEDS: INSULIN GLARGINE 100 UNITS/ML 10 ML VIAL SQ SCH ×2 (08:28→20:51)
[2020-05-26] MEDS: HEPARIN SODIUM 5000UNIT/ML 1ML VIAL SQ SCH ×3 (08:29→20:48)
[2020-05-26] MEDS: ACETYLCYSTEINE 600 MG CAPSULE PO SCH ×2 (08:33→20:41)
[2020-05-26 09:31] LABS: ALBUMIN 2.6 g/dL (3.5-5.0); BILIRUBIN,TOTAL 0.4 mg/dL (0.2-1.0); CRP QUANTITATIVE 59.4 mg/L (0.00-9.0); POTASSIUM 4.1 mmol/L (3.5-5.1); TOTAL PROTEIN, SERUM 6.8 g/dL (6.0-8.3)
--- NOTE | 2020-05-26 18:28 | NUR ---
Pt sitting up in chair alert, pt showed no signs and symtoms of distress, vitals stable
[2020-05-26] MEDS: DIPHENHYDRAMINE HCL 25 MG CAPSULE PO PRN (22:41)
[2020-05-27] VITALS (9 sets, daily range): BP systolic 133–175; BP diastolic 39–81
[2020-05-27] MEDS: LEVOFLOXACIN 500 MG/D5W 100 ML 100 ML IV SCH (01:36)
[2020-05-27] MEDS: ALBUTEROL INHALER 90MCG/INH IH SCH ×6 (01:37→21:11)
--- NOTE | 2020-05-27 04:25 | NUR ---
assessment patient is alert and oriented times 4 no complaints of any pain. had to insert a new IV again tonight. patient refused her inhaler. will contiueto monitor
[2020-05-27] MEDS: INSULIN HUMULIN R 100 UNIT/ML 3ML SQ SCH ×7 (06:23→21:20)
[2020-05-27 07:46] LABS: BASOPHILS % (AUTO) 0.2 % (0.0-5.0); HEMATOCRIT 38.8 % (36-48); LYMPHOCYTES % (AUTO) 7.8 % (21.0-51.0); MEAN CORPUSCULAR HEMOGLOBIN 27.4 pg (27.0-33.0); MEAN CORPUSCULAR VOLUME 85.8 fL (79-99); MONOCYTES % (AUTO) 8.1 % (3.0-13.0); PLATELET COUNT (AUTO) 501 K/uL (130-400); RED BLOOD CELL COUNT(AUTO) 4.52 MIL/uL (4.00-5.50); RED CELL DISTRIBUTION WIDTH 14.5 % (11.0-15.5); WHITE BLOOD COUNT (AUTO) 18.1 K/uL (4.8-10.8)
[2020-05-27 07:59] LABS: CREATININE 1.1 mg/dL (0.5-1.5); CRP QUANTITATIVE 43.4 mg/L (0.00-9.0)
[2020-05-27] MEDS: DEXAMETHASONE 4 MG TAB PO SCH ×2 (09:00→21:11)
[2020-05-27] MEDS: PANTOPRAZOLE SODIUM 40 MG TABLET.DR PO SCH (09:41)
[2020-05-27] MEDS: ACETYLCYSTEINE 600 MG CAPSULE PO SCH ×2 (09:41→21:11)
[2020-05-27] MEDS: ENALAPRIL MALEATE 10 MG TABLET PO SCH (09:42)
[2020-05-27] MEDS: HEPARIN SODIUM 5000UNIT/ML 1ML VIAL SQ SCH ×3 (09:44→21:22)
[2020-05-27] MEDS: INSULIN GLARGINE 100 UNITS/ML 10 ML VIAL SQ SCH ×2 (09:46→21:21)
--- NOTE | 2020-05-27 18:35 | NUR ---
PT alert, pt sitting in room on non-rebreather mask, showed no signs and symptoms of distress, will continue to monitor pt
[2020-05-27] MEDS: DIPHENHYDRAMINE HCL 25 MG CAPSULE PO PRN (21:11)
[2020-05-28] VITALS (7 sets, daily range): BP systolic 31–151; BP diastolic 55–72
[2020-05-28] MEDS: LEVOFLOXACIN 500 MG/D5W 100 ML 100 ML IV SCH (01:40)
[2020-05-28] MEDS: ALBUTEROL INHALER 90MCG/INH IH SCH ×6 (01:40→21:10)
[2020-05-28] MEDS: INSULIN HUMULIN R 100 UNIT/ML 3ML SQ SCH ×7 (05:52→21:09)
[2020-05-28 07:05] LABS: BASOPHILS % (AUTO) 0.2 % (0.0-5.0); EOSINOPHILS % (AUTO) 0.1 % (0.0-8.0); HEMATOCRIT 38.1 % (36-48); LYMPHOCYTES % (AUTO) 5.9 % (21.0-51.0); MEAN CORPUSCULAR HEMOGLOBIN 27.3 pg (27.0-33.0); MEAN CORPUSCULAR HGB CONC 31.8 g/dL (32.0-36.0); MONOCYTES % (AUTO) 5.5 % (3.0-13.0); NEUTROPHILS % (AUTO) 83.5 % (40.0-77.0); PLATELET COUNT (AUTO) 466 K/uL (130-400); RED BLOOD CELL COUNT(AUTO) 4.43 MIL/uL (4.00-5.50); RED CELL DISTRIBUTION WIDTH 14.5 % (11.0-15.5); WHITE BLOOD COUNT (AUTO) 16.4 K/uL (4.8-10.8)
[2020-05-28 07:31] LABS: ALBUMIN 2.4 g/dL (3.5-5.0); BILIRUBIN,TOTAL 0.6 mg/dL (0.2-1.0); CREATININE 1.1 mg/dL (0.5-1.5); CRP QUANTITATIVE 138.5 mg/L (0.00-9.0); POTASSIUM 4.1 mmol/L (3.5-5.1); TOTAL PROTEIN, SERUM 6.6 g/dL (6.0-8.3)
[2020-05-28] MEDS: DEXAMETHASONE 4 MG TAB PO SCH ×2 (08:35→20:21)
[2020-05-28] MEDS: ENALAPRIL MALEATE 10 MG TABLET PO SCH (08:36)
[2020-05-28] MEDS: PANTOPRAZOLE SODIUM 40 MG TABLET.DR PO SCH (08:36)
[2020-05-28] MEDS: ACETYLCYSTEINE 600 MG CAPSULE PO SCH ×2 (08:36→20:20)
[2020-05-28] MEDS: ACETAMINOPHEN 325 MG TAB PO PRN ×3 (08:37→18:28)
[2020-05-28] MEDS: HEPARIN SODIUM 5000UNIT/ML 1ML VIAL SQ SCH ×3 (08:40→20:28)
[2020-05-28] MEDS: INSULIN GLARGINE 100 UNITS/ML 10 ML VIAL SQ SCH ×2 (08:42→21:09)
--- NOTE | 2020-05-28 18:02 | NUR ---
Pt received 1 unit of plasma, alert, showed no signs and symptoms of distress, no allergic reaction, 1 unit left to give, vitals stable, will continue to monitor
[2020-05-28] MEDS: DIPHENHYDRAMINE HCL 25 MG CAPSULE PO PRN (20:20)
[2020-05-29] VITALS (8 sets, daily range): BP systolic 142–164; BP diastolic 59–78
[2020-05-29] MEDS: LEVOFLOXACIN 500 MG/D5W 100 ML 100 ML IV SCH (00:12)
[2020-05-29] MEDS: HYDRALAZINE HCL 20 MG/ML VIAL IV PRN (00:12)
[2020-05-29] MEDS: ALBUTEROL INHALER 90MCG/INH IH SCH ×6 (00:33→20:42)
--- NOTE | 2020-05-29 02:09 | NUR ---
assessment Felecia is alert and oriented times 4. No complaints of any pain. I finished the last unit of plasma this evening. Patient tolerated proceedure. Given prn blood pressure meds. for elevated systolic in the 160's. will continue to monitor.
[2020-05-29 05:16] LABS: BASOPHILS % (AUTO) 0.4 % (0.0-5.0); EOSINOPHILS % (AUTO) 0.1 % (0.0-8.0); HEMATOCRIT 37.2 % (36-48); LYMPHOCYTES % (AUTO) 3.7 % (21.0-51.0); MEAN CORPUSCULAR HEMOGLOBIN 27.2 pg (27.0-33.0); MEAN CORPUSCULAR HGB CONC 31.2 g/dL (32.0-36.0); MEAN CORPUSCULAR VOLUME 87.3 fL (79-99); MONOCYTES % (AUTO) 4.3 % (3.0-13.0); NEUTROPHILS % (AUTO) 86.7 % (40.0-77.0); PLATELET COUNT (AUTO) 428 K/uL (130-400); RED BLOOD CELL COUNT(AUTO) 4.26 MIL/uL (4.00-5.50); RED CELL DISTRIBUTION WIDTH 14.7 % (11.0-15.5); WHITE BLOOD COUNT (AUTO) 18.7 K/uL (4.8-10.8)
[2020-05-29 05:35] LABS: ALBUMIN 2.5 g/dL (3.5-5.0); BILIRUBIN,TOTAL 0.5 mg/dL (0.2-1.0); CREATININE 1.1 mg/dL (0.5-1.5); CRP QUANTITATIVE 162.6 mg/L (0.00-9.0); POTASSIUM 4.2 mmol/L (3.5-5.1)
[2020-05-29] MEDS: INSULIN HUMULIN R 100 UNIT/ML 3ML SQ SCH ×7 (06:34→20:41)
[2020-05-29] MEDS: DEXAMETHASONE 4 MG TAB PO SCH (08:19)
[2020-05-29] MEDS: PANTOPRAZOLE SODIUM 40 MG TABLET.DR PO SCH (08:20)
[2020-05-29] MEDS: ENALAPRIL MALEATE 10 MG TABLET PO SCH (08:20)
[2020-05-29] MEDS: ACETYLCYSTEINE 600 MG CAPSULE PO SCH ×2 (08:20→19:40)
[2020-05-29] MEDS: HEPARIN SODIUM 5000UNIT/ML 1ML VIAL SQ SCH ×3 (08:21→19:44)
[2020-05-29] MEDS: INSULIN GLARGINE 100 UNITS/ML 10 ML VIAL SQ SCH ×2 (08:24→20:42)
--- NOTE | 2020-05-29 12:47 | NUR ---
RDSCREEN - LOS X 8 Pt admitted with Syncopal episode, Acute encephalopathy. Positive COVID-19, ARF. Pt tolerating 60gm CCD with no report of GI distress. PO intake at 100%. Pt with N-acetylcysteine in place. WBC 18.7. Fluctuating BG levels. LDH 430. Recommend 500mg Vitamin C (BID), 220mg ZnSO4 (QD), MVI (QD) Recommend 60mL ProMod QD RD to continue to monitor. Please notify as additional nutrition concerns arise. Thank you.
[2020-05-29] MEDS: METHYLPREDNISOLONE SOD SUCC 40MG/ML 1ML IVP SCH ×2 (15:00→20:35)
[2020-05-29] MEDS: ACETAMINOPHEN 325 MG TAB PO PRN ×5 (17:41→21:20)
--- NOTE | 2020-05-29 17:41 | NUR ---
Pt 11:30am blood sugar dropped to 67 and pt became symptomatic, shaking, sweating, confusion, pt was given 1 orange juices and her lunch to eat, pt instantly felt relieved after she ate, pt is now alert, showing no signs and symptoms of distress, stated no pain, will continue to monitor pt
[2020-05-29] MEDS: DIPHENHYDRAMINE HCL 25 MG CAPSULE PO PRN (20:35)
[2020-05-30] VITALS (9 sets, daily range): BP systolic 109–165; BP diastolic 59–73
[2020-05-30] MEDS: LEVOFLOXACIN 500 MG/D5W 100 ML 100 ML IV SCH (01:21)
[2020-05-30] MEDS: ALBUTEROL INHALER 90MCG/INH IH SCH ×6 (01:21→20:05)
--- NOTE | 2020-05-30 04:33 | NUR ---
assessment Pt. is alert and oriented times 4. No complaints of any pain. patitient set at bedside most of the night. She did give herself a bath with bucket of water at bedside. patient still with cough. vitals stable will continue to monitor.
[2020-05-30] MEDS: INSULIN HUMULIN R 100 UNIT/ML 3ML SQ SCH ×7 (05:47→21:07)
[2020-05-30] MEDS: METHYLPREDNISOLONE SOD SUCC 40MG/ML 1ML IVP SCH ×3 (05:50→19:50)
[2020-05-30 06:43] LABS: BASOPHILS % (AUTO) 0.3 % (0.0-5.0); EOSINOPHILS % (AUTO) 0.1 % (0.0-8.0); HEMATOCRIT 35.9 % (36-48); LYMPHOCYTES % (AUTO) 2.7 % (21.0-51.0); MEAN CORPUSCULAR HEMOGLOBIN 27.5 pg (27.0-33.0); MEAN CORPUSCULAR HGB CONC 31.8 g/dL (32.0-36.0); MEAN CORPUSCULAR VOLUME 86.7 fL (79-99); MONOCYTES % (AUTO) 3.8 % (3.0-13.0); NEUTROPHILS % (AUTO) 88.5 % (40.0-77.0); PLATELET COUNT (AUTO) 522 K/uL (130-400); RED BLOOD CELL COUNT(AUTO) 4.14 MIL/uL (4.00-5.50); RED CELL DISTRIBUTION WIDTH 14.8 % (11.0-15.5); WHITE BLOOD COUNT (AUTO) 20.7 K/uL (4.8-10.8)
[2020-05-30 07:15] LABS: ALBUMIN 2.4 g/dL (3.5-5.0); BILIRUBIN,TOTAL 0.4 mg/dL (0.2-1.0); CREATININE 1.1 mg/dL (0.5-1.5); CRP QUANTITATIVE 134.8 mg/L (0.00-9.0); POTASSIUM 4.4 mmol/L (3.5-5.1)
[2020-05-30] MEDS: ACETYLCYSTEINE 600 MG CAPSULE PO SCH ×2 (08:13→19:51)
[2020-05-30] MEDS: ENALAPRIL MALEATE 10 MG TABLET PO SCH (08:13)
[2020-05-30] MEDS: PANTOPRAZOLE SODIUM 40 MG TABLET.DR PO SCH (08:13)
[2020-05-30] MEDS: INSULIN GLARGINE 100 UNITS/ML 10 ML VIAL SQ SCH ×2 (08:16→21:06)
[2020-05-30] MEDS: HEPARIN SODIUM 5000UNIT/ML 1ML VIAL SQ SCH ×3 (08:17→19:51)
--- NOTE | 2020-05-30 18:42 | NUR ---
Pt alert, showed no signs and symptoms of distress, pt is on 80% NRB, CT chest is scheduled for tomorrow, will continue to monitor pt
[2020-05-31] VITALS (11 sets, daily range): BP systolic 146–163; BP diastolic 50–76
[2020-05-31] MEDS: ALBUTEROL INHALER 90MCG/INH IH SCH ×6 (01:28→19:44)
--- NOTE | 2020-05-31 04:36 | NUR ---
assessment patient is alert and oriented times 4 no complaints of any pain. The patient is on a nonrebreather. vitals stable patient setting on the side of the bed. will continue to monitor.
[2020-05-31] MEDS: METHYLPREDNISOLONE SOD SUCC 40MG/ML 1ML IVP SCH ×3 (06:04→19:43)
[2020-05-31] MEDS: INSULIN HUMULIN R 100 UNIT/ML 3ML SQ SCH ×7 (06:05→20:01)
[2020-05-31] MEDS: PANTOPRAZOLE SODIUM 40 MG TABLET.DR PO SCH (08:17)
[2020-05-31] MEDS: ACETAMINOPHEN 325 MG TAB PO PRN (08:18)
[2020-05-31] MEDS: ENALAPRIL MALEATE 10 MG TABLET PO SCH (08:18)
[2020-05-31] MEDS: HEPARIN SODIUM 5000UNIT/ML 1ML VIAL SQ SCH ×3 (08:20→19:45)
[2020-05-31] MEDS: INSULIN GLARGINE 100 UNITS/ML 10 ML VIAL SQ SCH ×2 (08:23→20:02)
[2020-05-31] MEDS: ACETYLCYSTEINE 600 MG CAPSULE PO SCH ×2 (09:00→19:42)
[2020-05-31 11:42] LABS: CRP QUANTITATIVE 72.4 mg/L (0.00-9.0)
--- NOTE | 2020-05-31 17:34 | NUR ---
Pt alert, stated no pain, pt showed no signs and symptoms of distress, oxygen level is 89-94 on NRB, will continue to monitor pt
[2020-05-31] MEDS ORDERED: COLCHICINE 0.6 MG TABLET PO SCH (18:00)
[2020-05-31] MEDS: AZITHROMYCIN 250 MG TABLET PO SCH (19:43)
[2020-05-31] MEDS: COLCHICINE 0.6 MG TABLET PO SCH (19:43)
[2020-05-31] MEDS: DIPHENHYDRAMINE HCL 25 MG CAPSULE PO PRN (19:43)
[2020-06-01] VITALS (11 sets, daily range): BP systolic 118–150; BP diastolic 56–77
[2020-06-01] MEDS: ALBUTEROL INHALER 90MCG/INH IH SCH ×6 (01:10→20:46)
[2020-06-01] MEDS: METHYLPREDNISOLONE SOD SUCC 40MG/ML 1ML IVP SCH ×3 (05:32→19:51)
[2020-06-01] MEDS: INSULIN HUMULIN R 100 UNIT/ML 3ML SQ SCH ×7 (05:34→20:45)
[2020-06-01 06:39] LABS: ALBUMIN 2.4 g/dL (3.5-5.0); BILIRUBIN,TOTAL 0.4 mg/dL (0.2-1.0); CREATININE 1.1 mg/dL (0.5-1.5); CRP QUANTITATIVE 136.1 mg/L (0.00-9.0); POTASSIUM 4.6 mmol/L (3.5-5.1); TOTAL PROTEIN, SERUM 7.1 g/dL (6.0-8.3)
--- NOTE | 2020-06-01 08:35 | NUR ---
PT AAOx4. OOB IN CHAIR. DENIED NEEDS/PAIN. RESPIRATIONS LABORED AND SOB AFTER USING BSC. O2 SAT 80% NRB AT 15L. ENCOURAGED PT TO LIE PRONE, BUT PATIENT REFUSED. RT NOTIFIED, PT WILL BE PLACED ON HIGH FLOW O2. CONTINUOUS MONITORING ONGOING. SAFETY MEASURES IN PLACE.
[2020-06-01] MEDS: COLCHICINE 0.6 MG TABLET PO SCH (08:58)
[2020-06-01] MEDS: ENALAPRIL MALEATE 10 MG TABLET PO SCH (08:59)
[2020-06-01] MEDS: PANTOPRAZOLE SODIUM 40 MG TABLET.DR PO SCH (08:59)
[2020-06-01] MEDS: ACETYLCYSTEINE 600 MG CAPSULE PO SCH ×2 (08:59→19:51)
[2020-06-01] MEDS: HEPARIN SODIUM 5000UNIT/ML 1ML VIAL SQ SCH ×2 (09:00→14:35)
[2020-06-01] MEDS: INSULIN GLARGINE 100 UNITS/ML 10 ML VIAL SQ SCH ×2 (09:01→20:46)
--- NOTE | 2020-06-01 13:40 | NUR ---
PT RESTING QUIETLY IN BED AT THIS TIME IN THE PRONE POSITION. RESPIRATIONS EVEN AND LABORED. O2 SAT 92% ON HIGH FLOW 80% AND NRB AT 15L. ENCOURAGED PT TO LIE PRONE FOR LONG COULD TOLERATE. CONTINUOUS MONITORING ONGOING. SAFETY MEASURES IN PLACE.
[2020-06-01] MEDS: ACETAMINOPHEN 325 MG TAB PO PRN (16:08)
[2020-06-01] MEDS ORDERED: REMDESIVIR (INVESTIGATIONAL) 100 MG in SODIUM CHLORIDE 0.9% 250 ML IV SCH (18:00)
[2020-06-01] MEDS: AZITHROMYCIN 250 MG TABLET PO SCH (18:02)
--- NOTE | 2020-06-01 18:41 | NUR ---
AAOx4. DANGLING AT BEDSIDE IN NO APPARENT DISTRESS. RESPIRATIONS EVEN AND LABORED. O2 SAT 95% ON HIGH FLOW 80% AND NRB AT 15L. CONTINUOUS MONITORING ONGOING. SAFETY MEASURES IN PLACE.
[2020-06-01] MEDS: DIPHENHYDRAMINE HCL 25 MG CAPSULE PO PRN (19:52)
[2020-06-01] MEDS: ENOXAPARIN SODIUM 40 MG/0.4 ML SYRINGE SQ SCH (20:46)
[2020-06-02] MEDS: ALBUTEROL INHALER 90MCG/INH IH SCH ×6 (02:00→19:50)
[2020-06-02 04:06] VITALS: BP 160/90
[2020-06-02 04:07] VITALS: BP 160/90
[2020-06-02] MEDS: METHYLPREDNISOLONE SOD SUCC 40MG/ML 1ML IVP SCH ×3 (05:48→20:52)
[2020-06-02] MEDS: INSULIN HUMULIN R 100 UNIT/ML 3ML SQ SCH ×7 (05:50→20:48)
--- NOTE | 2020-06-02 06:04 | NUR ---
ASSESSMENT PATIENT IS ALERT AND ORIENTED TIMES 4. nO COMPLAINTS OF ANY PAIN. PATIENT IS ON HIGH HERMINIA AND A NON REBREATHER. PATIENT SLEPT VERY MINIMAL LAST NIGHT. BLOOD SUGAR WAS 213 THIS MORNING GAVE HER THE 8 UNITS PLUS THE 14 SCHEDULED. WILL CONTINUE TO MONITOR.
[2020-06-02 07:06] LABS: ALANINE AMINOTRANSFERASE 27 U/L (12-78); ALBUMIN 2.5 g/dL (3.5-5.0); ASPARTATE AMINOTRANSFERASE 20 U/L (10-37); BILIRUBIN,TOTAL 0.4 mg/dL (0.2-1.0); CARBON DIOXIDE 28 mmol/L (21-32); CHLORIDE 103 mmol/L (101-111); CREATININE 1.1 mg/dL (0.5-1.5); GLOMERULAR FILTR. RATE CALC 53 mL/min (>60); GLUCOSE,RANDOM 207 mg/dL (70-105); LACTATE DEHYDROGENASE 406 U/L (81-234); POTASSIUM 4.5 mmol/L (3.5-5.1); SODIUM SERUM 140 mmol/L (136-145); TOTAL PROTEIN, SERUM 7.2 g/dL (6.0-8.3); UREA NITROGEN, BLOOD 32 mg/dL (7-18)
[2020-06-02 08:45] VITALS: BP 161/72
[2020-06-02] MEDS: COLCHICINE 0.6 MG TABLET PO SCH (09:21)
[2020-06-02] MEDS: PANTOPRAZOLE SODIUM 40 MG TABLET.DR PO SCH (09:21)
[2020-06-02] MEDS: ACETYLCYSTEINE 600 MG CAPSULE PO SCH ×2 (09:21→19:50)
[2020-06-02] MEDS: ENALAPRIL MALEATE 10 MG TABLET PO SCH (09:22)
[2020-06-02] MEDS: ENOXAPARIN SODIUM 40 MG/0.4 ML SYRINGE SQ SCH ×2 (09:23→19:50)
[2020-06-02] MEDS: INSULIN GLARGINE 100 UNITS/ML 10 ML VIAL SQ SCH ×2 (09:25→20:48)
--- NOTE | 2020-06-02 10:48 | NUR ---
Pt alert, showed no signs and symptoms of distress, pt asked for NO intubation, pt signed a consent that was placed in chart to do not intubate her, pt stated she understood what that meant and she did not want to be intubated if anything was to happen, pt took a picture of her consent after she signed it, MD Au notified in person on the 4th floor, will continue to monitor pt
--- NOTE | 2020-06-02 10:51 | NUR ---
Pt stated CPR and medication only, NO intubation, consent signed and placed in pt chart
[2020-06-02 11:00] VITALS: BP 157/73
[2020-06-02 16:00] VITALS: BP 161/73
[2020-06-02] MEDS: AZITHROMYCIN 250 MG TABLET PO SCH (17:03)
[2020-06-02] MEDS: DIPHENHYDRAMINE HCL 25 MG CAPSULE PO PRN (19:50)
[2020-06-02 20:08] VITALS: BP 162/72
[2020-06-03 00:08] VITALS: BP 141/69
[2020-06-03] MEDS: ALBUTEROL INHALER 90MCG/INH IH SCH ×6 (00:34→20:22)
[2020-06-03 04:08] VITALS: BP 158/75
[2020-06-03 05:21] LABS: ALANINE AMINOTRANSFERASE 29 U/L (12-78); ALBUMIN 2.3 g/dL (3.5-5.0); ASPARTATE AMINOTRANSFERASE 22 U/L (10-37); BILIRUBIN,TOTAL 0.4 mg/dL (0.2-1.0); CARBON DIOXIDE 29 mmol/L (21-32); CHLORIDE 103 mmol/L (101-111); CREATININE 1.3 mg/dL (0.5-1.5); GLOMERULAR FILTR. RATE CALC 44 mL/min (>60); GLUCOSE,RANDOM 185 mg/dL (70-105); LACTATE DEHYDROGENASE 345 U/L (81-234); SODIUM SERUM 141 mmol/L (136-145); TOTAL PROTEIN, SERUM 6.6 g/dL (6.0-8.3); UREA NITROGEN, BLOOD 36 mg/dL (7-18)
[2020-06-03] MEDS: INSULIN HUMULIN R 100 UNIT/ML 3ML SQ SCH ×7 (06:34→20:32)
--- NOTE | 2020-06-03 06:39 | NUR ---
assessment pt. is alert and oriented times 4 no complains of any pain. she is on a nonrebreather at 15 liters and high flow at 80%. she is currently sating 94%. BLOOD SUGAR IS 161 given morning coverage.. also given a morning turkey sandwich
[2020-06-03 08:00] VITALS: BP 158/79
[2020-06-03] MEDS: METHYLPREDNISOLONE SOD SUCC 40MG/ML 1ML IVP SCH ×2 (08:53→20:21)
[2020-06-03] MEDS: ENALAPRIL MALEATE 10 MG TABLET PO SCH (08:53)
[2020-06-03] MEDS: ACETYLCYSTEINE 600 MG CAPSULE PO SCH ×2 (08:53→20:22)
[2020-06-03] MEDS: PANTOPRAZOLE SODIUM 40 MG TABLET.DR PO SCH (08:53)
[2020-06-03] MEDS: ENOXAPARIN SODIUM 40 MG/0.4 ML SYRINGE SQ SCH ×2 (08:54→20:22)
[2020-06-03] MEDS: INSULIN GLARGINE 100 UNITS/ML 10 ML VIAL SQ SCH ×2 (08:54→20:32)
[2020-06-03] MEDS: COLCHICINE 0.6 MG TABLET PO SCH (09:19)
[2020-06-03 11:00] VITALS: BP 147/74
--- NOTE | 2020-06-03 12:30 | NUR ---
FAMILY NOTIFICATION AND UPDATE SPOKE TO SON ANN LUGO. GIVEN PT STATUS UPDATE AND PLAN OF CARE . ALL QUESTIONS ANSWERED. GIVEN PASSWORD FOR CALLS I ALSO SPOKE TO HIM YESTERDAY 06/02/20.
[2020-06-03 16:00] VITALS: BP 122/71
[2020-06-03] MEDS: AZITHROMYCIN 250 MG TABLET PO SCH (18:33)
--- NOTE | 2020-06-03 18:36 | NUR ---
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
[2020-06-03] MEDS: DIPHENHYDRAMINE HCL 25 MG CAPSULE PO PRN (20:22)
[2020-06-03 20:24] VITALS: BP 139/56
--- NOTE | 2020-06-03 22:03 | NUR ---
assessment patient is alert and oriented times 4 no complaints of any pain. pt. is sating 91% on high flow at 80% and a nonrebreather at 15 liters. patient refused her night insulin. she said that she dropped to low today and was scarred. vitals are stable will continue to monitor.
[2020-06-04 00:24] VITALS: BP 130/60
[2020-06-04] MEDS: ALBUTEROL INHALER 90MCG/INH IH SCH ×6 (01:34→20:39)
[2020-06-04 04:20] VITALS: BP 143/48
[2020-06-04] MEDS: INSULIN HUMULIN R 100 UNIT/ML 3ML SQ SCH ×7 (05:48→20:35)
[2020-06-04 06:57] LABS: BASOPHILS % (AUTO) 0.2 % (0.0-5.0); EOSINOPHILS % (AUTO) 0.1 % (0.0-8.0); HEMATOCRIT 37.4 % (36-48); LYMPHOCYTES % (AUTO) 2.4 % (21.0-51.0); MEAN CORPUSCULAR HEMOGLOBIN 27.8 pg (27.0-33.0); MEAN CORPUSCULAR VOLUME 89.5 fL (79-99); MONOCYTES % (AUTO) 1.7 % (3.0-13.0); NEUTROPHILS % (AUTO) 93.8 % (40.0-77.0); PLATELET COUNT (AUTO) 356 K/uL (130-400); RED BLOOD CELL COUNT(AUTO) 4.18 MIL/uL (4.00-5.50); RED CELL DISTRIBUTION WIDTH 15.1 % (11.0-15.5)
[2020-06-04 07:10] LABS: CREATININE 1.2 mg/dL (0.5-1.5); POTASSIUM 4.8 mmol/L (3.5-5.1)
[2020-06-04 08:00] VITALS: BP 144/67
[2020-06-04] MEDS: METHYLPREDNISOLONE SOD SUCC 40MG/ML 1ML IVP SCH ×2 (08:56→20:03)
[2020-06-04] MEDS: PANTOPRAZOLE SODIUM 40 MG TABLET.DR PO SCH (08:56)
[2020-06-04] MEDS: COLCHICINE 0.6 MG TABLET PO SCH (08:57)
[2020-06-04] MEDS: ACETYLCYSTEINE 600 MG CAPSULE PO SCH ×2 (08:57→20:04)
[2020-06-04] MEDS: ENALAPRIL MALEATE 10 MG TABLET PO SCH (08:57)
[2020-06-04] MEDS: ENOXAPARIN SODIUM 40 MG/0.4 ML SYRINGE SQ SCH ×2 (08:58→20:03)
[2020-06-04] MEDS: INSULIN GLARGINE 100 UNITS/ML 10 ML VIAL SQ SCH (09:00)
[2020-06-04 11:30] VITALS: BP 139/62
[2020-06-04 15:30] VITALS: BP 149/73
[2020-06-04] MEDS: REMDESIVIR (EUA) 520 200 MG in SODIUM CHLORIDE 0.9% 250 ML IV ONE ×2 (16:21→16:31)
--- NOTE | 2020-06-04 16:32 | NUR ---
Pt refused remdesivir x3, pt stated she just did not want to take the medication when I asked her why, called pharmacy to come pick medication, pt alert, did not show signs and symptoms of distress, will continue to monitor pt
[2020-06-04] MEDS: AZITHROMYCIN 250 MG TABLET PO SCH (17:12)
[2020-06-04] MEDS: DIPHENHYDRAMINE HCL 25 MG CAPSULE PO PRN (20:05)
[2020-06-04 21:00] VITALS: BP 117/42
[2020-06-05] VITALS (7 sets, daily range): BP systolic 120–147; BP diastolic 53–90
[2020-06-05] MEDS: ALBUTEROL INHALER 90MCG/INH IH SCH ×6 (02:02→19:59)
[2020-06-05] MEDS: INSULIN HUMULIN R 100 UNIT/ML 3ML SQ SCH ×7 (05:41→20:01)
--- NOTE | 2020-06-05 06:10 | NUR ---
assessment Patietn is alert and oriented times 4. no complaints of any pain. patietn is on high flow 80% and nonrebreather at 15 liters. blood sugar this morning is 188 i covered her with 6 units of insulin. Pt. refused the scheduled 14 units. vitals stable will continue to monitor.
[2020-06-05 06:33] LABS: BASOPHILS % (AUTO) 0.1 % (0.0-5.0); LYMPHOCYTES % (AUTO) 2.6 % (21.0-51.0); MEAN CORPUSCULAR HEMOGLOBIN 28.2 pg (27.0-33.0); MEAN CORPUSCULAR HGB CONC 31.4 g/dL (32.0-36.0); MEAN CORPUSCULAR VOLUME 89.8 fL (79-99); MONOCYTES % (AUTO) 2.5 % (3.0-13.0); NEUTROPHILS % (AUTO) 93.2 % (40.0-77.0); PLATELET COUNT (AUTO) 409 K/uL (130-400); RED BLOOD CELL COUNT(AUTO) 4.12 MIL/uL (4.00-5.50); RED CELL DISTRIBUTION WIDTH 14.9 % (11.0-15.5)
[2020-06-05 07:18] LABS: CARBON DIOXIDE 28 mmol/L (21-32); CHLORIDE 103 mmol/L (101-111); CREATININE 1.1 mg/dL (0.5-1.5); GLOMERULAR FILTR. RATE CALC 53 mL/min (>60); GLUCOSE,RANDOM 215 mg/dL (70-105); LACTATE DEHYDROGENASE 379 U/L (81-234); POTASSIUM 4.7 mmol/L (3.5-5.1); SODIUM SERUM 137 mmol/L (136-145); UREA NITROGEN, BLOOD 35 mg/dL (7-18)
[2020-06-05] MEDS: COLCHICINE 0.6 MG TABLET PO SCH (08:52)
[2020-06-05] MEDS: ENOXAPARIN SODIUM 40 MG/0.4 ML SYRINGE SQ SCH ×2 (08:52→19:59)
[2020-06-05] MEDS: ACETYLCYSTEINE 600 MG CAPSULE PO SCH ×2 (08:52→19:58)
[2020-06-05] MEDS: METHYLPREDNISOLONE SOD SUCC 40MG/ML 1ML IVP SCH ×2 (08:53→19:58)
[2020-06-05] MEDS: ENALAPRIL MALEATE 10 MG TABLET PO SCH (08:53)
[2020-06-05] MEDS: INSULIN GLARGINE 100 UNITS/ML 10 ML VIAL SQ SCH (08:54)
[2020-06-05] MEDS: PANTOPRAZOLE SODIUM 40 MG TABLET.DR PO SCH (09:00)
--- NOTE | 2020-06-05 13:04 | NUR ---
Family notification Spoke to Abilio Borges to give him an update regarding pt's condition and also informed him that pt has been refusing antiviral med. Stated he will be speaking to pt in regards to that. All questions were answered and concerns addressed. He was very appreciative of call.
[2020-06-05] MEDS ORDERED: REMDESIVIR (EUA) 520 100 MG in SODIUM CHLORIDE 0.9% 250 ML IV SCH (16:00)
[2020-06-05] MEDS: FUROSEMIDE 10 MG/ML 2ML VIAL IV SCH (17:45)
[2020-06-05] MEDS: DIPHENHYDRAMINE HCL 25 MG CAPSULE PO PRN (19:59)
[2020-06-06] MEDS: ALBUTEROL INHALER 90MCG/INH IH SCH ×6 (02:52→19:58)
[2020-06-06 04:06] VITALS: BP 191/72
[2020-06-06] MEDS: HYDRALAZINE HCL 20 MG/ML VIAL IV PRN (04:28)
--- NOTE | 2020-06-06 04:42 | NUR ---
assessment Patient is alert and oriented times 4. no complaints of any pain. patient is sating 96% on nonrebreather and high flow. Blood sugar last night was 164 i covered her with insulin. systolic blood pressure was 191 this morning so i gave her 10 of hydralazine. will continue to monitor.
[2020-06-06 05:19] LABS: BASOPHILS % (AUTO) 0.2 % (0.0-5.0); EOSINOPHILS % (AUTO) 0.1 % (0.0-8.0); HEMATOCRIT 35.7 % (36-48); LYMPHOCYTES % (AUTO) 2.5 % (21.0-51.0); MEAN CORPUSCULAR HEMOGLOBIN 27.8 pg (27.0-33.0); MEAN CORPUSCULAR HGB CONC 30.8 g/dL (32.0-36.0); MEAN CORPUSCULAR VOLUME 90.4 fL (79-99); MONOCYTES % (AUTO) 2.4 % (3.0-13.0); NEUTROPHILS % (AUTO) 93.3 % (40.0-77.0); PLATELET COUNT (AUTO) 357 K/uL (130-400); RED BLOOD CELL COUNT(AUTO) 3.95 MIL/uL (4.00-5.50); RED CELL DISTRIBUTION WIDTH 14.8 % (11.0-15.5); WHITE BLOOD COUNT (AUTO) 19.2 K/uL (4.8-10.8)
[2020-06-06 05:35] LABS: CARBON DIOXIDE 30 mmol/L (21-32); CHLORIDE 103 mmol/L (101-111); CREATININE 1.2 mg/dL (0.5-1.5); GLOMERULAR FILTR. RATE CALC 48 mL/min (>60); GLUCOSE,RANDOM 184 mg/dL (70-105); LACTATE DEHYDROGENASE 368 U/L (81-234); SODIUM SERUM 140 mmol/L (136-145); UREA NITROGEN, BLOOD 35 mg/dL (7-18)
[2020-06-06] MEDS: INSULIN HUMULIN R 100 UNIT/ML 3ML SQ SCH ×7 (05:43→19:57)
[2020-06-06 08:00] VITALS: BP 138/82
[2020-06-06] MEDS: PANTOPRAZOLE SODIUM 40 MG TABLET.DR PO SCH (08:12)
[2020-06-06] MEDS: ACETYLCYSTEINE 600 MG CAPSULE PO SCH ×2 (08:12→19:52)
[2020-06-06] MEDS: METHYLPREDNISOLONE SOD SUCC 40MG/ML 1ML IVP SCH ×2 (08:12→19:51)
[2020-06-06] MEDS: ENALAPRIL MALEATE 10 MG TABLET PO SCH (08:13)
[2020-06-06] MEDS: ENOXAPARIN SODIUM 40 MG/0.4 ML SYRINGE SQ SCH ×2 (08:13→19:52)
[2020-06-06] MEDS: INSULIN GLARGINE 100 UNITS/ML 10 ML VIAL SQ SCH (08:17)
[2020-06-06 11:00] VITALS: BP 139/58
--- NOTE | 2020-06-06 13:17 | NUR ---
Family notification Spoke to Abilio Borges regarding pt's condition. Stated he spoke to pt regarding refusing antiviral. Stated he will be supportive of his mother's wishes. Stated wanted to drop of picture for pt's room. All other questions were answered and concerns addressed. He was very grateful for the call.
[2020-06-06 16:00] VITALS: BP 155/65
[2020-06-06] MEDS: FUROSEMIDE 10 MG/ML 2ML VIAL IV SCH (17:32)
--- NOTE | 2020-06-06 18:40 | NUR ---
Pt alert, showed no signs and symptoms of distress, no pain noted, will continue to monitor
[2020-06-06 19:00] VITALS: BP 151/70
[2020-06-06] MEDS: DIPHENHYDRAMINE HCL 25 MG CAPSULE PO PRN (19:52)
[2020-06-07] VITALS: BP 160/71
[2020-06-07] MEDS: ALBUTEROL INHALER 90MCG/INH IH SCH ×6 (01:36→20:40)
[2020-06-07 03:52] VITALS: BP 159/93
[2020-06-07] MEDS: INSULIN HUMULIN R 100 UNIT/ML 3ML SQ SCH ×7 (05:50→20:39)
--- NOTE | 2020-06-07 06:25 | NUR ---
assessment pt is alert and oriented times 4. No complaints of any pain. patient is sating 92% on a nonrebreather and high flow oxygen. blood sugar this morn was 135. No coverage. vitals are stable will continue to monitor.
[2020-06-07 08:00] VITALS: BP 160/55
[2020-06-07] MEDS: ACETYLCYSTEINE 600 MG CAPSULE PO SCH ×2 (08:04→19:40)
[2020-06-07] MEDS: ENALAPRIL MALEATE 10 MG TABLET PO SCH (08:05)
[2020-06-07] MEDS: ENOXAPARIN SODIUM 40 MG/0.4 ML SYRINGE SQ SCH ×2 (08:05→19:40)
[2020-06-07] MEDS: METHYLPREDNISOLONE SOD SUCC 40MG/ML 1ML IVP SCH ×2 (08:05→19:38)
[2020-06-07] MEDS: PANTOPRAZOLE SODIUM 40 MG TABLET.DR PO SCH (08:05)
[2020-06-07] MEDS: INSULIN GLARGINE 100 UNITS/ML 10 ML VIAL SQ SCH (08:07)
[2020-06-07 08:33] LABS: CARBON DIOXIDE 30 mmol/L (21-32); CHLORIDE 106 mmol/L (101-111); CREATININE 1.1 mg/dL (0.5-1.5); GLOMERULAR FILTR. RATE CALC 53 mL/min (>60); GLUCOSE,RANDOM 130 mg/dL (70-105); POTASSIUM 4.8 mmol/L (3.5-5.1); SODIUM SERUM 140 mmol/L (136-145); UREA NITROGEN, BLOOD 29 mg/dL (7-18)
[2020-06-07 08:51] LABS: LACTATE DEHYDROGENASE 374 U/L (81-234)
[2020-06-07 12:00] VITALS: BP 152/74
[2020-06-07] MEDS: FUROSEMIDE 10 MG/ML 2ML VIAL IV SCH (15:00)
[2020-06-07 16:00] VITALS: BP 141/60
[2020-06-07 19:00] VITALS: BP 135/82
[2020-06-07] MEDS: DIPHENHYDRAMINE HCL 25 MG CAPSULE PO PRN (19:43)
[2020-06-08] VITALS: BP 166/61
[2020-06-08] MEDS: ALBUTEROL INHALER 90MCG/INH IH SCH ×6 (01:10→20:39)
[2020-06-08 04:00] VITALS: BP 161/67
[2020-06-08] MEDS: INSULIN HUMULIN R 100 UNIT/ML 3ML SQ SCH ×7 (06:15→20:39)
--- NOTE | 2020-06-08 06:37 | NUR ---
assessment pt. is alert and oriented times 4. no complaints of any pain. patient is sating 90% on a nonrebreather and high flow. blood sugar this morning was 209 coverage given.
[2020-06-08] MEDS: HYDRALAZINE HCL 20 MG/ML VIAL IV PRN (06:46)
[2020-06-08 08:00] VITALS: BP 111/66
[2020-06-08 08:02] LABS: BASOPHILS % (AUTO) 0.1 % (0.0-5.0); EOSINOPHILS % (AUTO) 0.5 % (0.0-8.0); HEMATOCRIT 37.7 % (36-48); LYMPHOCYTES % (AUTO) 6.3 % (21.0-51.0); MEAN CORPUSCULAR HEMOGLOBIN 28.3 pg (27.0-33.0); MEAN CORPUSCULAR HGB CONC 32.1 g/dL (32.0-36.0); MEAN CORPUSCULAR VOLUME 88.1 fL (79-99); MONOCYTES % (AUTO) 3.5 % (3.0-13.0); NEUTROPHILS % (AUTO) 88.7 % (40.0-77.0); PLATELET COUNT (AUTO) 356 K/uL (130-400); RED BLOOD CELL COUNT(AUTO) 4.28 MIL/uL (4.00-5.50); RED CELL DISTRIBUTION WIDTH 14.8 % (11.0-15.5); WHITE BLOOD COUNT (AUTO) 21.4 K/uL (4.8-10.8)
[2020-06-08 08:16] LABS: CARBON DIOXIDE 31 mmol/L (21-32); CHLORIDE 103 mmol/L (101-111); GLOMERULAR FILTR. RATE CALC 59 mL/min (>60); GLUCOSE,RANDOM 189 mg/dL (70-105); LACTATE DEHYDROGENASE 423 U/L (81-234); POTASSIUM 4.3 mmol/L (3.5-5.1); SODIUM SERUM 138 mmol/L (136-145); UREA NITROGEN, BLOOD 23 mg/dL (7-18)
[2020-06-08] MEDS: METHYLPREDNISOLONE SOD SUCC 40MG/ML 1ML IVP SCH ×2 (11:12→20:37)
[2020-06-08] MEDS: ENOXAPARIN SODIUM 40 MG/0.4 ML SYRINGE SQ SCH ×2 (11:12→20:37)
[2020-06-08] MEDS: PANTOPRAZOLE SODIUM 40 MG TABLET.DR PO SCH (11:13)
[2020-06-08] MEDS: ACETYLCYSTEINE 600 MG CAPSULE PO SCH ×2 (11:13→20:36)
[2020-06-08] MEDS: ENALAPRIL MALEATE 10 MG TABLET PO SCH (11:13)
[2020-06-08] MEDS: INSULIN GLARGINE 100 UNITS/ML 10 ML VIAL SQ SCH (11:15)
[2020-06-08 12:00] VITALS: BP 134/72
[2020-06-08] MEDS: FUROSEMIDE 10 MG/ML 2ML VIAL IV SCH (14:22)
[2020-06-08 16:00] VITALS: BP 148/76
[2020-06-08 19:00] VITALS: BP 176/69
[2020-06-08] MEDS: DIPHENHYDRAMINE HCL 25 MG CAPSULE PO PRN (20:37)
[2020-06-09] VITALS (7 sets, daily range): BP systolic 143–195; BP diastolic 53–87
[2020-06-09] MEDS: ALBUTEROL INHALER 90MCG/INH IH SCH ×7 (01:12→23:53)
[2020-06-09] MEDS: HYDRALAZINE HCL 20 MG/ML VIAL IV PRN (04:21)
[2020-06-09] MEDS: INSULIN HUMULIN R 100 UNIT/ML 3ML SQ SCH ×7 (05:20→20:39)
--- NOTE | 2020-06-09 05:53 | NUR ---
assessment Patient is alert and oriented times 4 no complaints of any pain. Pt. is on a cpap at settings of 8. blood pressure was high this morning gave hydralazine and now sbp is 140. IV was changed to her left forearm. patient complained of anxiety attck this morning took vitals and just the heart rate elevated. told her to relax and distracted her for a few minutes and heart rate went down. She is very depressed. refusing to eat and take any insulin. will continue to monitor.
[2020-06-09 07:39] LABS: BASOPHILS % (AUTO) 0.1 % (0.0-5.0); HEMATOCRIT 37.6 % (36-48); LYMPHOCYTES % (AUTO) 2.1 % (21.0-51.0); MEAN CORPUSCULAR HEMOGLOBIN 28.4 pg (27.0-33.0); MEAN CORPUSCULAR HGB CONC 31.6 g/dL (32.0-36.0); MEAN CORPUSCULAR VOLUME 89.7 fL (79-99); MONOCYTES % (AUTO) 2.7 % (3.0-13.0); NEUTROPHILS % (AUTO) 93.9 % (40.0-77.0); PLATELET COUNT (AUTO) 291 K/uL (130-400); RED BLOOD CELL COUNT(AUTO) 4.19 MIL/uL (4.00-5.50); RED CELL DISTRIBUTION WIDTH 14.9 % (11.0-15.5); WHITE BLOOD COUNT (AUTO) 20.4 K/uL (4.8-10.8)
[2020-06-09 08:40] LABS: CREATININE 1.1 mg/dL (0.5-1.5); POTASSIUM 4.9 mmol/L (3.5-5.1)
[2020-06-09] MEDS: ACETYLCYSTEINE 600 MG CAPSULE PO SCH ×2 (09:13→20:30)
[2020-06-09] MEDS: ENALAPRIL MALEATE 10 MG TABLET PO SCH (09:13)
[2020-06-09] MEDS: METHYLPREDNISOLONE SOD SUCC 40MG/ML 1ML IVP SCH ×2 (09:13→20:30)
[2020-06-09] MEDS: PANTOPRAZOLE SODIUM 40 MG TABLET.DR PO SCH (09:13)
[2020-06-09] MEDS: ENOXAPARIN SODIUM 40 MG/0.4 ML SYRINGE SQ SCH (09:14)
[2020-06-09] MEDS: INSULIN GLARGINE 100 UNITS/ML 10 ML VIAL SQ SCH (09:15)
--- NOTE | 2020-06-09 10:00 | NUR ---
NOTE AAOX3. DENIES PAIN. SEEMS SOMEWHAT COMFORTABLE WITH CPAP. HER O2 SAT 98%. SHE HAS BEEN HERE ABOUT 20 DAYS NOW. SHE SIGNED DNR PAPERS YESTERDAY BECAUSE SHE WAS TIRED OF BEING HERE AND FIGHTING THIS VIRUS. SHE HAD REFUSED HER INSULINS YESTERDAY WELL BUT TODAY FOR ME SHE HAS ACCEPTED HER MEDS. I ASSISTED HER TO SIDE OF BED. APPLIED DESITIN OINTMENT TO HER STAGE 2 TO LEFT AND RIGHT BUTTOCK. SHE WAS BACK IN BED VERY SOB BUT WENT BACK TO 98% AFTER A FEW MINUTES.
[2020-06-09] MEDS: FUROSEMIDE 10 MG/ML 2ML VIAL IV SCH (16:08)
--- NOTE | 2020-06-09 17:30 | NUR ---
NOTE HAS REMAINED STABLE THROUGHOUT THE DAY. SAME AMOUNT OF O2 DELIVERY VIA CPAP. SATS STILL 98%.
[2020-06-09] MEDS: ENOXAPARIN SODIUM 100 MG/1 ML SQ SCH (20:30)
[2020-06-09] MEDS: DIPHENHYDRAMINE HCL 25 MG CAPSULE PO PRN (20:31)
[2020-06-09] MEDS ORDERED: ENOXAPARIN SODIUM 1 MG/KG SQ SCH (21:00)
[2020-06-09] MEDS ORDERED: COLCHICINE 0.6 MG TABLET PO SCH (23:15)
[2020-06-09] MEDS: LORAZEPAM 2 MG/ML 1 ML VIAL IVP PRN (23:26)
[2020-06-10 00:11] VITALS: BP 164/75
[2020-06-10 03:49] VITALS: BP 161/68
[2020-06-10] MEDS: ALBUTEROL INHALER 90MCG/INH IH SCH ×2 (05:33→21:33)
[2020-06-10] MEDS: INSULIN HUMULIN R 100 UNIT/ML 3ML SQ SCH ×7 (05:33→21:00)
[2020-06-10] MEDS: LORAZEPAM 2 MG/ML 1 ML VIAL IVP PRN (05:43)
[2020-06-10 06:36] LABS: BASOPHILS % (AUTO) 0.1 % (0.0-5.0); LYMPHOCYTES % (AUTO) 2.1 % (21.0-51.0); MEAN CORPUSCULAR HEMOGLOBIN 27.9 pg (27.0-33.0); MEAN CORPUSCULAR HGB CONC 31.1 g/dL (32.0-36.0); MEAN CORPUSCULAR VOLUME 89.8 fL (79-99); MONOCYTES % (AUTO) 1.2 % (3.0-13.0); NEUTROPHILS % (AUTO) 95.7 % (40.0-77.0); PLATELET COUNT (AUTO) 315 K/uL (130-400); RED BLOOD CELL COUNT(AUTO) 4.12 MIL/uL (4.00-5.50); RED CELL DISTRIBUTION WIDTH 14.9 % (11.0-15.5); WHITE BLOOD COUNT (AUTO) 16.7 K/uL (4.8-10.8)
[2020-06-10 07:10] LABS: CREATININE 1.2 mg/dL (0.5-1.5); CRP QUANTITATIVE 37.7 mg/L (0.00-9.0); POTASSIUM 4.7 mmol/L (3.5-5.1)
[2020-06-10] MEDS: METHYLPREDNISOLONE SOD SUCC 40MG/ML 1ML IVP SCH ×2 (09:02→21:34)
[2020-06-10] MEDS: COLCHICINE 0.6 MG TABLET PO SCH ×2 (09:02→21:35)
[2020-06-10] MEDS: ENALAPRIL MALEATE 10 MG TABLET PO SCH (09:02)
[2020-06-10] MEDS: PANTOPRAZOLE SODIUM 40 MG TABLET.DR PO SCH (09:02)
[2020-06-10] MEDS: ACETYLCYSTEINE 600 MG CAPSULE PO SCH ×2 (09:03→21:36)
[2020-06-10] MEDS: ENOXAPARIN SODIUM 100 MG/1 ML SQ SCH ×2 (09:03→21:37)
[2020-06-10] MEDS: INSULIN GLARGINE 100 UNITS/ML 10 ML VIAL SQ SCH (09:12)
--- NOTE | 2020-06-10 09:30 | NUR ---
NOTE SLEEPING, SEEMS SOMEWHAT LETHARGIC. WAS MEDICATED TWICE WITH ATIVAN. HER PULSE OXYMETER WAS OFF AND SOON I TURNED IT ON SHE WAS SATING 75%. I WOKE HER UP AND SIT HER UP IN BED. SHE STARTED TO GO UP TO MID 80'S O2 SATURATION. SHE WAS REQUESTING MORE ATIVAN. I TOLD HER IT WAS AFFECTING HER BREATHING AND THAT I WOULD HAVE TO CLEAR IT WITH DR FRANCIS. BBS CLEAR BUT VERY DIMINISHED. NO COUGH NOTED AT THIS TIME. REMAINS WITH CPAP, REFER TO R.T. ASSESSMENT FOR DETAILS ON O2 DELIVERY %.
[2020-06-10 09:31] VITALS: BP 135/78
[2020-06-10 11:55] VITALS: BP 157/89
[2020-06-10] MEDS: FUROSEMIDE 10 MG/ML 2ML VIAL IV SCH (14:55)
[2020-06-10 16:45] VITALS: BP 152/68
--- NOTE | 2020-06-10 17:00 | NUR ---
NOTE SLOWLY THROUGHOUT THE DAY SHE HAS BEEN COMING UP ON HER O2 SATURATIONS AND SHE IS 94-96% DURING THE LAST TIMES I CHECKED ON HER NOT TOO LONG AGO AND SHE DOES SEEM MORE COMFORTABLE. I EXPLAINED TO HER AGAIN ABOUT ATIVAN AFFECTING HER BREATHING AND THAT WE WOULD STAY AWAY FROM IT BECAUSE WE WANT TO PROMOTE IMPROVEMENT IN HER BREATHING STATUS AND SHE UNDERSTOOD PERFECTLY.
[2020-06-10 20:00] VITALS: BP 113/65
[2020-06-11] VITALS: BP 156/67
[2020-06-11] MEDS: ALBUTEROL INHALER 90MCG/INH IH SCH ×6 (02:00→22:41)
--- NOTE | 2020-06-11 02:04 | NUR ---
ALBUTEROL INHALER NOT ADMINISTERED AT THIS TIME. PT WAS SLEEPING COMFORTABLY. O2SaT AT 97-98% VIA CPAP WITH HR OF 88.
[2020-06-11 04:00] VITALS: BP 162/53
[2020-06-11] MEDS: INSULIN HUMULIN R 100 UNIT/ML 3ML SQ SCH ×4 (06:07→11:30)
[2020-06-11 08:00] VITALS: BP 157/68
--- NOTE | 2020-06-11 09:00 | NUR ---
AM ASSESSMENT PT AWAKE AND ALERT, PT ON CPAP 8 WITH FIO2 70, O2 SAT 90-94%, O2 SATS 70-80% WITH MINIMAL EXERTION. ASSISTANCE WITH ADLS. PT STATES WANTING TO GO "HOME TODAY". EDUCATED PT ON NEEDING CPAP CONTINUOUS TO ASSIST WITH BREATHING, STATES STILL WANTING TO GO HOME. MADE AWARE MD WILL BE NOTIFIED.
[2020-06-11] MEDS: METHYLPREDNISOLONE SOD SUCC 40MG/ML 1ML IVP SCH (10:09)
[2020-06-11] MEDS: ACETYLCYSTEINE 600 MG CAPSULE PO SCH ×2 (10:10→22:40)
[2020-06-11] MEDS: ENALAPRIL MALEATE 10 MG TABLET PO SCH (10:10)
[2020-06-11] MEDS: PANTOPRAZOLE SODIUM 40 MG TABLET.DR PO SCH (10:10)
[2020-06-11] MEDS: COLCHICINE 0.6 MG TABLET PO SCH ×2 (10:11→22:40)
[2020-06-11] MEDS: ENOXAPARIN SODIUM 100 MG/1 ML SQ SCH (10:12)
[2020-06-11] MEDS: INSULIN GLARGINE 100 UNITS/ML 10 ML VIAL SQ SCH (10:14)
[2020-06-11 11:00] VITALS: BP 145/77
--- NOTE | 2020-06-11 13:20 | NUR ---
PM ASSESSMENT PT AWAKE, ALERT, AND ORIENTED. CONTINUES WITH CPAP 8, O2 SAT 92-94% AT REST, SATS 70'S-80'S WITH EXERTION, FIO2 INCREASED TO 100% PER RT. PT REQUESTING TO GO HOME WITH HOSPICE CARE AND STATES SON AWARE OF HER WISHES. CALL PLACED TO SON AND MADE AWARE OF PT REQUESTING TO GO HOME WITH HOSPICE CARE, SON STATES WILL HONOR PT'S WISHES. DR FRANCIS MADE AWARE OF PT'S WISHES, ORDERS RECEIVED.
--- NOTE | 2020-06-11 13:30 | NUR ---
MD DR PULIDO IN TO SEE PT.
--- NOTE | 2020-06-11 15:00 | NUR ---
CONSENT PT AWAKE, ALERT, AND ORIENTED. PT AGREED AND CONSENTED TO HOSPICE. PT STATES NOT WANTING TO TAKE ANY MORE "MEDICATIONS" AND WANTS TO GO HOME, STATES AWARE OF WHAT CAN HAPPEN. PT CONTINUES ON CPAP 8 WITH FIO2 100%. ASSISTANCE WITH ADLS, CALL LIGHT WITHIN REACH.
--- NOTE | 2020-06-11 15:05 | NUR ---
Hospice Referral SW telephoned pt's son about hospice. Pt's son stated that he was aware as his mother told him that she wanted to go home to . SW provided education on Hospice services and son verbalized an understanding. Pt.'s son in agreement for pt. to be d/c'd home with hospice and provided verbal consent for [facility] to evaluate. Pt's son informed that [facility] would contact him about services and that they would complete assessment for plan of care; son verbalized an understanding. Referral packet faxed to [facility]. [id number] confirmed received and will f/u. CM made aware.
[2020-06-11] MEDS ORDERED: LORAZEPAM 2 MG TABLET PO PRN (15:45)
[2020-06-11] MEDS: FUROSEMIDE 40 MG TABLET PO SCH (18:33)
[2020-06-12] VITALS: BP 149/75
[2020-06-12] MEDS: ALBUTEROL INHALER 90MCG/INH IH SCH ×6 (02:08→20:32)
[2020-06-12] MEDS: ACETAMINOPHEN 325 MG TAB PO PRN (02:18)
[2020-06-12 08:00] VITALS: BP 101/63
--- NOTE | 2020-06-12 08:30 | NUR ---
AM ASSESSMENT PT IN BED WITH EYES CLOSED, AWAKENS WITH VERBAL STIMULATION. PT ORIENTED X3. STATES WANTING TO GO HOME WITH HOSPICE; PT MADE AWARE ARRANGEMENTS FOR HOSPICE IN PROCESS. PT CONTINUES ON CPAP 8 FIO2 70%, O2 SAT 91-92%. TOTAL CARE WITH ADLS, POSITIONED FOR COMFORT. PT REFUSED ALL MEDICATIONS THIS AM.
[2020-06-12] MEDS: PANTOPRAZOLE SODIUM 40 MG TABLET.DR PO SCH (09:00)
[2020-06-12] MEDS ORDERED: DEXAMETHASONE 4 MG TAB PO SCH (09:00)
[2020-06-12] MEDS: COLCHICINE 0.6 MG TABLET PO SCH ×2 (09:00→20:31)
[2020-06-12] MEDS: FUROSEMIDE 40 MG TABLET PO SCH ×2 (09:00→17:00)
[2020-06-12] MEDS: ACETYLCYSTEINE 600 MG CAPSULE PO SCH ×2 (09:00→20:32)
[2020-06-12] MEDS: ENALAPRIL MALEATE 10 MG TABLET PO SCH (09:00)
--- NOTE | 2020-06-12 10:19 | NUR ---
Hospice F/U SW spoke with [facility]da/[facility] re-status; per Mayda pending financial acceptance. [facility] faxed order to eval/admit to hospice services per request from Mayda. KUSH made aware.
--- NOTE | 2020-06-12 11:29 | NUR ---
RD FOLLOW UP Pt pending Comfort measures and hospice. Recommend meals/food and Ensure as desired. Please contact RD as nutrition concerns arise.
--- NOTE | 2020-06-12 14:00 | NUR ---
PM ASSESSMENT PT AWAKE AND ALERT, CONTINUES ON CPAP. PT STATES WANTING TO GO HOME WITH HOSPICE; MADE AWARE ARRANGEMENTS FOR HOSPICE IN PROCESS, PT ACKNOWLEDGED INFORMATION AND CONTENT. CALL LIGHT WITHIN REACH.
--- NOTE | 2020-06-12 14:15 | NUR ---
HOSPICE REP CALL RECEIVED FROM [place] [facility] , STATUS REPORT GIVEN AND INFORMATION REGARDING CPAP.
--- NOTE | 2020-06-12 14:55 | NUR ---
HOSPICE CALL RECEIVED FROM ENGADINE FROM [facility]; STATES MAY BE ABLE TO ACCOMMODATE PT AT HOME IF FIO2 IS AT 60% PER CPAP. DR FRANCIS MADE AWARE
[2020-06-12] MEDS ORDERED: ARTIFICAL TEARS SOL 15 ML OU PRN (16:00)
[2020-06-12] MEDS ORDERED: MORPHINE SULFATE 2 MG/ML 1ML SYG IM PRN (16:00)
[2020-06-12] MEDS ORDERED: MORPHINE SULFATE 15 MG TABLET.SA PO PRN (16:15)
--- NOTE | 2020-06-12 17:00 | NUR ---
O2 PER RT, FIO2 INCREASED TO 90% VIA CPAP SECONDARY TO O2 SATS HIGH 80'S.
--- NOTE | 2020-06-12 18:00 | NUR ---
O2 SAT PT IN BED WITH EYES CLOSED, NO SIGNS OF DISCOMFORT, NO LABORED RESPIRATIONS. O2 SAT 99%, PT ON CPAP 8 WITH FIO2 90%. POSITIONED FOR COMFORT, CALL LIGHT WITHIN REACH.
--- NOTE | 2020-06-12 18:20 | NUR ---
UPDATE ON HOSPICE- PENDING ACCEPTANCE BY [facility] NEEDS TO CONFIRM MEDICARE NUMBER PRIOR TO ACCEPTING PATIENT SPOKE WITH NURSE MIMS AND DR. Tubbs MULTIPLE TIME THROUGH THE COURSE OF THE DAY RE REQUIREMENTS FOR GOING HOME. CONFIRMED THAT [facility] CAN HANDLE CPAP, CAN HANDLE UP TO 70% FIO2. EMS CAN TRANSPORT WITH PORTABLE CPAP IN AMBULANCE- EMS TRANSPORT FORMS PREPARED. [facility]PT[facility]. ADDRESS VERIFIED . DR. Tubbs STATES DOES NOT THINK PATIENT IWLL BE ABLE TO BE WEANED TO 70% AND STAY STABLE FOR DISCHARGE. MD WAS ADVISED THAT AT THIS TIME WE ARE PENDING FOR [facility] TO [FINANCIALLY] ACCEPT THE PATIENT FOR GIP OR FOR HOME HOSPICE. PLAN; KEEP DOING WHAT WE ARE DOING TO MAKE PATIENT COMFORTABLE AND WAIT FOR ACCEPTANCE BY [facility]; THEY WILL ASSES IF ABLE TO BE TRANSFERRED FROM GIP TO HOME SON WANTED TO COME TO SEE PATIENT TODAY- ADVISED HE WAS COVID POSITIVE AND PER HOUSE NEEDS A NEGATIVE TEST NOW TO BE CONSIDERED FOR A VISIT; NO GUARRANTEED TO ANY VISIT , PER OUR POLICY. NICKI JUAREZ STATES HE W/ GOING TO ARRANGE TO GET A TEST.
[2020-06-12 21:01] VITALS: BP 163/80
--- NOTE | 2020-06-12 23:29 | NUR ---
assessment Pt. is alert and oriented times 4 no complaints of any pain. blood sugar was 354 there is no coverage. Pt stated that she wants to go home tomorrow and doesnt want anymore treatments. patient refused her meds. will continue to monitor.
[2020-06-13] MEDS: LORAZEPAM 2 MG/ML 1 ML VIAL IVP PRN (00:08)
[2020-06-13] MEDS: ALBUTEROL INHALER 90MCG/INH IH SCH ×2 (01:43→05:49)
[2020-06-13 08:00] VITALS: BP 128/89
--- NOTE | 2020-06-13 08:30 | NUR ---
DAUGHTER, VELIA CALLED FOR UPDATE ON PATIENT. REQUESTING TO SPEAK WITH DR. FRANCIS FOR RESULTS OF CHEST XRAY AND LABS/PROGNOSIS. INFORMED VELIA THAT I WOULD LET DR. FRANCIS KNOW AND GIVE HIM HER NUMBER TO CALL BACK.
--- NOTE | 2020-06-13 10:30 | NUR ---
DR. PEGUERO CALLED AND SPOKE WITH DAUGHTER, VELIA. DR. FRANCIS UPDATED HER ON PATIENT'S CONDITION.
--- NOTE | 2020-06-13 11:51 | NUR ---
REFERRAL TO [facility]- OOHDNR COMPLETED W SON IN ER [facility], ORGINAL FORM TO SON, COPY FAXED TO [facility] , COPY TO EMS WITH EMS PAPERWORK ORDER FOR BIPAP AT HOME,, IF UNAVAILABLE, CPAP- ENTERED AND SENT TO HOSPICE- WILL ORDER STAT FOR DELIVERY TO HOME. EMS PAPERWORK SENT TO [facility]. RN TO CALL WHEN DME IS DELIVERED AND SET UP SON WANTS TO RIDE BEHIND EMS. TOLD HIM I WOULD INCLUDE THE REQUEST WITH THE PAPERWOK SON WAS NOT VERY CALM THIS MORNING, BUT WAS AGREEABLE TO OOHDNR AND HAS CALMED DOWN NOW THAT THE PLAN OF CARE IS COMPLETE KRYSTA FERNANDO. Addendum: 06/13/20 at 1157 by FARIHA HOLLAND RN Amended: Links added.
[2020-06-13 12:00] VITALS: BP 141/66
[2020-06-13 16:00] VITALS: BP 145/69
--- NOTE | 2020-06-13 18:45 | NUR ---
NOTE PATIENT'S SON CALLED ME THAT HE HAS RECEIVED CPAP AT HOME. HE IS IN THE E.R. PARKING LOT AND HE WILL FOLLOW EMS WHEN THEY GET HERE. SYLVIA WITH [facility] ALSO CALLED AND HE WANTS TO BE NOTIFIED WHEN EMS PICKS UP THE PATIENT WELL THE SON. PROVIDED NIGHT NURSE JERRY WITH BOTH THE SON'S ADN HOSPICE NURSE'S #.
--- NOTE | 2020-06-13 20:50 | NUR ---
discharged ems arrived and placed their cpap on the patient. IV had already been removed. There was no tele to remove. I checked to make sure. discharge instructions were given and pt. signed. I notified [facility] that [facility] was here and called the son and notified him that she was ready to depart.
== END 2020-06-13 20:26 | DRG 177 ==
LOC: EDH 19:56 → EDHIP 05-21 00:04 → 4BH 05-22 02:14
PROVIDERS: ADMIT Internal Medicine; ATTEND Internal Medicine
PROC: 5A09457 Assistance with Respiratory Ventilation, 24-96 Consecutive Hours, Continuous Positive Airway Pressure (ICD-10-PCS; 2020-06-08)
PROC: 30233K1 Transfusion of Nonautologous Frozen Plasma into Peripheral Vein, Percutaneous Approach (ICD-10-PCS; principal; 2020-06-10)
PROC: 5A09457 Assistance with Respiratory Ventilation, 24-96 Consecutive Hours, Continuous Positive Airway Pressure (ICD-10-PCS; 2020-06-10)
DX: U07.1 COVID-19 (principal); J96.01 Acute respiratory failure with hypoxia; J12.89 Other viral pneumonia; G93.40 Encephalopathy, unspecified; J44.1 Chronic obstructive pulmonary disease with (acute) exacerbation; E87.1 Hypo-osmolality and hyponatremia; N17.9 Acute kidney failure, unspecified; Z68.41 Body mass index [BMI] 40.0-44.9, adult; J44.0 Chronic obstructive pulmonary disease with (acute) lower respiratory infection; Z51.5 Encounter for palliative care; Z66 Do not resuscitate; E83.51 Hypocalcemia; N18.3 Chronic kidney disease, stage 3 (moderate); M10.9 Gout, unspecified; F41.9 Anxiety disorder, unspecified; F32.9 Major depressive disorder, single episode, unspecified; I12.9 Hypertensive chronic kidney disease with stage 1 through stage 4 chronic kidney disease, or unspecified chronic kidney disease; E11.22 Type 2 diabetes mellitus with diabetic chronic kidney disease; J98.4 Other disorders of lung; E11.65 Type 2 diabetes mellitus with hyperglycemia; E66.01 Morbid (severe) obesity due to excess calories; E86.0 Dehydration; Z87.01 Personal history of pneumonia (recurrent); Z88.8 Allergy status to other drugs, medicaments and biological substances; Z83.3 Family history of diabetes mellitus; Z82.49 Family history of ischemic heart disease and other diseases of the circulatory system
CPT/HCPCS: 0099U; 36415; 36600; 70450; 71045; 80048; 80053; 81001; 82010; 82330; 82550; 82728; 82803; 82948; 83036; 83605; 83615; 83735; 83874; 83880; 84145; 84478; 84484; 85025; 85378; 85384; 85610; 85730; 86140; 86850; 86900; 86901; 86927; 87040; 87071; 87088; 87205; 87449; 87486; 87581; 87633; 87641; 87798; 87804; 87807; 93005; 93306; 93356; 93880; 93970; 94660; G0378; J0360; J0456; J0610; J0696; J1100; J1644; J1650; J1815; J1940; J1956; J2060; J2405; J2920; J2930; J7050; J8540; P9017; Q0163; U0003